=== PATIENT | female | born 1950 | race African-American/Black ===

== ENCOUNTER → 2018-12-25 | Day surgery (SDC) | payer MEDICARE, OTHER ==
[2018-12-18 09:46] VITALS: BP 137/78
[2018-12-18 11:41] LABS: APPEARANCE,URINE CLOUDY; BILIRUBIN,URINE NEGATIVE (NEGATIVE); GLUCOSE, URINE NEGATIVE (NEGATIVE); KETONES,URINE NEGATIVE (NEGATIVE); LEUKOCYTE ESTERASE,URINE SMALL (NEGATIVE); NITRITE,URINE NEGATIVE (NEGATIVE); PROTEIN,URINE NEGATIVE (NEGATIVE); URINE SPECIFIC GRAVITY 1.017; UROBILINOGEN,URINE NEGATIVE mg/dL (<2.0)
[2018-12-18 11:42] LABS: COLOR,URINE YELLOW
[2018-12-18 11:46] LABS: MEAN CORPUSCULAR HEMOGLOBIN 27.4 pg (27.0-33.4); MEAN CORPUSCULAR HGB CONC 32.3 g/dL (32.0-36.0); MEAN CORPUSCULAR VOLUME 85 fl (80-97); PLATELET COUNT 295 10^3/uL (150-450); RED CELL DISTRIBUTION WIDTH 13.7 % (11.5-14.0); WHITE BLOOD COUNT 4.6 10^3/uL (4.0-10.5)
[2018-12-18 11:51] LABS: INTERNATIONAL RATION (INR) 0.96; PROTHROMBIN TIME 13.3 SEC (11.4-15.4)
[2018-12-18 11:52] LABS: PARTIAL THROMBOPLASTIN TIME 34.9 SEC (23.5-35.8)
--- NOTE | 2018-12-18 12:24 | RADIOLOGY REPORT (SQ) ---
EXAM DESCRIPTION: CHEST PA/LATERAL COMPLETED DATE/TIME: 12/18/2018 11:35 am REASON FOR STUDY: PRE-OP COMPARISON: 11/02/2011 EXAM PARAMETERS: NUMBER OF VIEWS: two views TECHNIQUE: Digital Frontal and Lateral radiographic views of the chest acquired. RADIATION DOSE: NA LIMITATIONS: none FINDINGS: LUNGS AND PLEURA: No opacities, masses or pneumothorax. No pleural effusion. MEDIASTINUM AND HILAR STRUCTURES: No masses or contour abnormalities. HEART AND VASCULAR STRUCTURES: Heart normal size. No evidence for failure. BONES: No acute findings. Mild degenerative changes at the left Shoulder. HARDWARE: None in the chest. OTHER: No other significant finding. IMPRESSION: NO SIGNIFICANT RADIOGRAPHIC FINDING IN THE CHEST. TECHNICAL DOCUMENTATION: JOB ID: [id number] [employer]- All Rights Reserved Reading location - IP/workstation name: [email or web address]
--- NOTE | 2018-12-18 15:46 | EKG REPORT ---
SEVERITY:- ABNORMAL ECG - SINUS RHYTHM RIGHT ATRIAL ABNORMALITY BORDERLINE PROLONGED QT INTERVAL : Confirmed by: Grant Peters MD 18-Dec-2018 15:46:14
[~2018-12-25] MED LIST: CEFAZOLIN 1 GM/D5W RTU 1 GM/50 ML RTUPB IV PRN; LACTATED RINGERS 1000 ML IV PRN; LIDOCAINE 0.5% INJ-PF (5 MG/ML) 50 ML SDV SUBCUT PRN
[2018-12-25 09:20] LABS: APPEARANCE,URINE CLOUDY; BILIRUBIN,URINE NEGATIVE (NEGATIVE); COLOR,URINE YELLOW; GLUCOSE, URINE NEGATIVE (NEGATIVE); KETONES,URINE NEGATIVE (NEGATIVE); LEUKOCYTE ESTERASE,URINE MODERATE (NEGATIVE); NITRITE,URINE NEGATIVE (NEGATIVE); PROTEIN,URINE NEGATIVE (NEGATIVE); URINE SPECIFIC GRAVITY 1.015; UROBILINOGEN,URINE NEGATIVE mg/dL (<2.0)
--- NOTE | 2018-12-25 10:48 | DISCHARGE SUMMARY E ---
Discharge Summary NAME: ESDRAS PAINTER : 1950 AGE: 68Y ADMITTED: 12/25/2018 DISCHARGED: 12/25/2018 DISCHARGE DIAGNOSIS: 1. END OF LIFE INTRATHECAL BACLOFEN PUMP. 2. CELLULITIS, LOWER EXTREMITIES. 3. PROBABLE URINARY TRACT INFECTION. AMBULATORY SURGERY COURSE: Patient was admitted through the usual process. Nursing discussed with the patient her status. The patient revealed that she had been having increased swelling and blisters in her lower extremities. She states she did not bring that to any other provider's attention prior to this. On examination, the patient was found to have moderate edema of the calves and ankles as well as some open blisters of the calves. IMPRESSION: PROBABLE CELLULITIS SECONDARY TO STASIS. RECOMMENDATION: Patient will be sent [facility] for evaluation and treatment. Urinalysis will be performed as well and treatment will be initiated as needed. The patient will follow up in the clinic in 1 week. DICTATING PHYSICIAN: ALFREDO WALSH M.D. [id number] PHY#: [id number] ID: [id number] JOB#: [id number] ACCT: [id number] cc:ALFREDO WALSH M.D. >
== END ==
LOC: OROUT 08:24
PROVIDERS: ATTEND Pain Medicine Interventional Pain Medicine
DX: I87.8 Other specified disorders of veins (principal); L03.116 Cellulitis of left lower limb; L03.115 Cellulitis of right lower limb; G89.4 Chronic pain syndrome; Z79.01 Long term (current) use of anticoagulants; Z79.899 Other long term (current) drug therapy; G35 Multiple sclerosis; Z99.3 Dependence on wheelchair
CPT/HCPCS: 36415; 71046; 81001; 85027; 85610; 85730; 93005; 93010

== ENCOUNTER 2019-02-05 06:02 | Day surgery (SDC) | payer MEDICARE, OTHER ==
[2019-01-29 11:08] LABS: APPEARANCE,URINE CLEAR; BILIRUBIN,URINE NEGATIVE (NEGATIVE); COLOR,URINE STRAW; GLUCOSE, URINE NEGATIVE (NEGATIVE); KETONES,URINE NEGATIVE (NEGATIVE); LEUKOCYTE ESTERASE,URINE NEGATIVE (NEGATIVE); NITRITE,URINE NEGATIVE (NEGATIVE); PROTEIN,URINE NEGATIVE (NEGATIVE); URINE SPECIFIC GRAVITY 1.008; UROBILINOGEN,URINE NEGATIVE mg/dL (<2.0)
--- NOTE | 2019-01-29 12:00 | RADIOLOGY REPORT (SQ) ---
EXAM DESCRIPTION: CHEST PA/LATERAL COMPLETED DATE/TIME: 01/29/2019 11:47 am REASON FOR STUDY: PRE-OP COMPARISON: TWO-VIEW CHEST 12/18/2018 CT CHEST 07/20/2016 EXAM PARAMETERS: NUMBER OF VIEWS: two views TECHNIQUE: Digital Frontal and Lateral radiographic views of the chest acquired. RADIATION DOSE: NA LIMITATIONS: none FINDINGS: LUNGS AND PLEURA: Lungs are hyperinflated and hyperlucent from obstructive disease. No fo annie infiltrates. No pleural effusion. No pneumothorax. MEDIASTINUM AND HILAR STRUCTURES: Retrocardiac small hiatal hernia HEART AND VASCULAR STRUCTURES: Heart normal size. No evidence for failure. BONES: No acute findings. HARDWARE: None in the chest. OTHER: No other significant finding. IMPRESSION: COPD. No acute infiltrates TECHNICAL DOCUMENTATION: JOB ID: [id number] [employer]- All Rights Reserved Reading location - IP/workstation name: [email or web address]
--- NOTE | 2019-01-29 12:07 | EKG REPORT ---
SEVERITY:- OTHERWISE NORMAL ECG - SINUS RHYTHM LOW VOLTAGE IN FRONTAL LEADS NO ACUTE CHANGE : Confirmed by: Grant Peters MD 29-Jan-2019 12:07:20
[2019-01-29 12:08] LABS: HEMATOCRIT 32.3 % (36.0-47.0); HEMOGLOBIN 10.6 g/dL (12.0-15.5); MEAN CORPUSCULAR HEMOGLOBIN 27.8 pg (27.0-33.4); MEAN CORPUSCULAR HGB CONC 32.8 g/dL (32.0-36.0); MEAN CORPUSCULAR VOLUME 85 fl (80-97); PLATELET COUNT 292 10^3/uL (150-450); RED BLOOD COUNT 3.81 10^6/uL (3.72-5.28); RED CELL DISTRIBUTION WIDTH 14.1 % (11.5-14.0); WHITE BLOOD COUNT 4.5 10^3/uL (4.0-10.5)
[2019-01-29 12:25] LABS: INTERNATIONAL RATION (INR) 0.94
[2019-01-29 12:26] LABS: PARTIAL THROMBOPLASTIN TIME 33.4 SEC (23.5-35.8)
[~2019-02-05 06:02] MED LIST changes: +CEFAZOLIN 1 GM/D5W RTU 1 GM/50 ML RTUPB IV ONE
[2019-02-05] MEDS ORDERED: SODIUM BICARBONATE 4.2% INJ (2.5 MEQ/5 ML) VIAL ONE (06:26)
[2019-02-05] MEDS ORDERED: LIDOCAINE 1% INJ-PF (10 MG/ML) 30 ML SDV ONE (06:26)
[2019-02-05] MEDS ORDERED: BUPIVACAINE HCL 0.5%-EPI 1:200000 INJ/PF 30 ML VIAL ONE (06:26)
[2019-02-05] MEDS ORDERED: FENTANYL CITRATE INJ/PF 100 MCG/2 ML AMPUL ONE (06:52)
[2019-02-05] MEDS ORDERED: MIDAZOLAM 2 MG/2 ML INJ ONE (06:52)
[2019-02-05] MEDS ORDERED: ONDANSETRON HCL INJ/PF 4 MG/2 ML SDV ONE (06:52)
[2019-02-05] MEDS ORDERED: EPHEDRINE SULFATE INJ 50 MG/1 ML AMPULE ONE (06:52)
[2019-02-05] MEDS ORDERED: PROMETHAZINE HCL INJ 25 MG/1 ML VIAL ONE ×2 (06:52→09:27)
[2019-02-05] MEDS ORDERED: PROPOFOL INJ 200 MG/20 ML VIAL IV ONE (06:53)
[2019-02-05] MEDS ORDERED: ACETAMINOPHEN 1,000 MG/100 ML RTUPB IV ONE (06:53)
[2019-02-05] MEDS ORDERED: MEPERIDINE HCL/PF INJ 25 MG/1 ML DISP.SYRIN IV PRN (08:27)
[2019-02-05] MEDS ORDERED: FENTANYL CITRATE INJ/PF 100 MCG/2 ML AMPUL IV PRN (08:27)
[2019-02-05] MEDS ORDERED: PROMETHAZINE HCL INJ 25 MG/1 ML VIAL IV PRN (08:27)
[2019-02-05] MEDS ORDERED: DIPHENHYDRAMINE HCL 50 MG/ML VIAL IV PRN (08:27)
[2019-02-05] MEDS ORDERED: CEFAZOLIN INJ 1 GM VIAL ONE (09:17)
--- NOTE | 2019-02-05 10:39 | OPERATIVE REPORT E ---
Operative Report NAME: ESDRAS PAINTER : 1950 AGE: 68Y DATE OF SURGERY: 02/05/2019 ROOM: PREOPERATIVE DIAGNOSIS: End-of-life battery intrathecal pump for chronic spasticity. 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 OPERATION: Intrathecal pump replacement. SURGEON: LALY SEVILLA M.D. MARINE GEAR KEEPER: None. ANESTHESIA: MAC. COMPLICATIONS: None. PROCEDURE IN DETAIL: After obtaining informed consent and advising the patient of the risks and benefits, including serious neurological injury, bleeding, infection, allergic reaction, , she was taken to the operating room. She was placed comfortably in a supine position. Comfort was assessed visually and verbally. She was then prepped with chlorhexidine with a suitable drying time prior to draping. Intrathecal pump was readily palpable in the right lower quadrant. Previous incision scar was anesthetized with 1% lidocaine with bicarb followed by bupivacaine 0.25% with epinephrine. Sharp and blunt dissection was performed down to the intrathecal pump which was readily identified. Electrocautery was minimally necessary for hemostasis. The old sutures were then clipped and the intrathecal pump was easily removed. A small *------* incision was made in the scar capsule of the generator pocket to facilitate placement of new generator and new pump. The old pump was then disconnected and 2 mL was able to be drawn from the catheter line. The new pump on the side table at the same time was filled and primed to set for the pump and catheter since 2 mL were withdrawn. It was then connected and placed back within the pocket and then secured with 0 Mersilene to the superior edge of the pocket. A Betadine-containing irrigation solution was then copiously used for irrigation into the wound. It was then closed with interrupted vertical mattress sutures of 3-0 Polysorb. The skin came together nicely. The region was cleansed again followed by placement of anoop. When this was done, a Tegaderm sponge dressing *------* was placed over the top. She was then taken back to the PACU for further postoperative care and monitoring. The pump was then interrogated with appropriate medication and 42 mL instilled. The patient will follow up for staple removal and wound check on , 02/07/2019, in our office. DICTATING PHYSICIAN: LALY SEVILLA M.D. [id number] PHY#: [id number] ID: [id number] JOB#: [id number] ACCT: [id number] cc:LALY SEVILLA M.D. >
[2019-02-05 12:34] VITALS: BP 107/69
== END 2019-02-05 11:30 | disposition home or self-care (01) ==
LOC: OROUT 06:02
PROVIDERS: ATTEND Student in an Organized Health Care Education/Training Program
DX: Z45.1 Encounter for adjustment and management of infusion pump (principal); G89.4 Chronic pain syndrome; G35 Multiple sclerosis; L97.909 Non-pressure chronic ulcer of unspecified part of unspecified lower leg with unspecified severity; Z79.899 Other long term (current) drug therapy
CPT/HCPCS: 93010; 93005; 62361; 36415 ×2; 84132; 85027; 85610; 85730; 81001; 71046; C1772; J2250; J3490 ×3; J0690 ×2; J3010; J2704; J0131; 400; J2405; J2550

== ENCOUNTER → 2019-02-19 | Outpatient (CLI) | payer MEDICARE, OTHER ==
[2019-02-19 12:57] LABS: ABSOLUTE EOSINOPHILS # (AUTO) 0.1 10^3/uL (0.0-0.6); ABSOLUTE LYMPHOCYTES (AUTO) 0.2 10^3/uL (0.5-4.7); ABSOLUTE MONOCYTES (AUTO) 0.6 10^3/uL (0.1-1.4); ABSOLUTE NEUT (AUTO) 3.2 10^3/uL (1.7-8.2); EOSINOPHILS % (AUTO) 1.4 % (0-6); HEMATOCRIT 33.5 % (36.0-47.0); HEMOGLOBIN 10.9 g/dL (12.0-15.5); LYMPHOCYTES % (AUTO) 5.5 % (13-45); MEAN CORPUSCULAR HEMOGLOBIN 27.5 pg (27.0-33.4); MEAN CORPUSCULAR HGB CONC 32.5 g/dL (32.0-36.0); MEAN CORPUSCULAR VOLUME 85 fl (80-97); MONOCYTES % (AUTO) 15.2 % (3-13); RED BLOOD COUNT 3.96 10^6/uL (3.72-5.28); RED CELL DISTRIBUTION WIDTH 14.3 % (11.5-14.0); SEGMENTED NEUTROPHILS % (AUTO) 76.9 % (42-78); TOTAL CELLS COUNTED % (AUTO) 100 %; WHITE BLOOD COUNT 4.1 10^3/uL (4.0-10.5)
[2019-02-19 13:25] LABS: ALANINE AMINOTRANSFERASE 15 U/L (9-52); ALBUMIN 4.4 g/dL (3.5-5.0); ALKALINE PHOSPHATASE 127 U/L (38-126); ANION GAP 9 (5-19); ASPARTATE AMINO TRANSFERASE 22 U/L (14-36); BILIRUBIN,DIRECT 0.3 mg/dL (0.0-0.4); BILIRUBIN,TOTAL 0.3 mg/dL (0.2-1.3); BLOOD UREA NITROGEN 43 mg/dL (7-20); CALCIUM 9.6 mg/dL (8.4-10.2); CARBON DIOXIDE 29 mmol/L (22-30); CHLORIDE 105 mmol/L (98-107); GLUCOSE 90 mg/dL (75-110); POTASSIUM 3.8 mmol/L (3.6-5.0); SODIUM 143.1 mmol/L (137-145); TOTAL PROTEIN 7.4 g/dL (6.3-8.2)
[2019-02-19 13:27] LABS: C-REACTIVE PROTEIN < 5.0 mg/L (<10.0)
[2019-02-19 13:32] LABS: PLATELET COUNT 284 10^3/uL (150-450)
[2019-02-19 13:46] LABS: ERYTHROCYTE SEDIMENTATION RATE 32 mm/hr (0-30)
--- NOTE | 2019-02-19 17:28 | XCELERA REPORT ---
[address] [address] Lower Extremity Arterial Evaluation Name: ESDRAS PAINTER Age: 68 yrs Gender: Female : 1950 Patient Status: Outpatient Patient Location: [facility] Study Date: 02/19/2019 01:17 PM Procedure: A color flow and duplex scan of the lower extremity arteries was performed bilaterally with velocity and waveform anaylsis. Reason For Study: ULCER Ordering Physician: LETY BARRETT Performed By: [place] Measurements and Calculations Right Left PARAMEDICAL AIDE PSV 126.4 105.9 cm/sec Prox PFA PSV -67.7 100.4 cm/sec Prox SFA PSV 85.9 98.2 cm/sec Mid SFA PSV -115.7 -99.3 cm/sec Dist SFA PSV -75.1 -84.0 cm/sec Prox Pop A PSV 52.0 49.2 cm/sec Dist TORRIE PSV 67.7 44.3 cm/sec Dist COLLECTION DEVELOPMENT LIBRARIAN PSV 82.5 45.5 cm/sec Garry Pedis PSV 58.0 -85.5 cm/sec Right Side Arterial Evaluation Normal velocity and triphasic waveforms noted from the Common Femoral artery to the infrageniculate vessels . Ankle Brachial index not obtained. Left Side Arterial Evaluation Normal velocity and triphasic waveforms noted from the Common Femoral artery to the infrageniculate vessels . Ankle Brachial index not obtained. Interpretation Summary No hemodynamically significant lesions in the bilateral lower extremities, on duplex imaging, at rest. : LETY BARRETT > Tommy Dockery
--- NOTE | 2019-02-19 17:30 | XCELERA REPORT ---
[address] [address] Lower Extremity Venous Evaluation Procedure: A bilateral duplex scan of the lower extremity veins was performed. The evaluation included responses to compression and other maneuvers with patient in the supine and standing positions to assess venous insufficiency. Right Sided Venous Evaluation Deep venous system evaluatiion shows patent veins with no obstruction or significant reflux identified. Sapheno Femoral junction: no reflux. Femoral vein reflux: no reflux. Greater Saphenous vein, Proximal thigh: reflux: no reflux. Greater Saphenous vein, Distal thigh: reflux: no reflux. Greater Saphenous vein, Proximal below knee: reflux: no reflux. No significant Perforators identified. Left Sided Venous Evaluation Deep venous system evaluatiion shows patent veins with no obstruction or significant reflux identified. Sapheno Femoral junction: no reflux. Femoral vein reflux: no reflux. Greater Saphenous vein, Proximal thigh: reflux: no reflux. Greater Saphenous vein, Distal thigh: reflux: no reflux. Greater Saphenous vein, Proximal below knee: reflux: no reflux. No significant Perforators identified. Interpretation Summary No duplex evidence of DVT or obstruction in the bilateral lower extremities. No deep or superficial reflux noted. The study was very difficult due to patient's inability to stand. Name: ESDRAS PAINTER Age: 68 yrs Gender: Female : 1950 Patient Status: Outpatient Patient Location: Study Date: 02/19/2019 02:10 PM Reason For Study: ULCER Ordering Physician: LETY BARRETT Performed By: [place] : LETY BARRETT > Tommy Dockery
== END ==
LOC: SP 13:40
PROVIDERS: ATTEND Nurse Practitioner Family
DX: L97.211 Non-pressure chronic ulcer of right calf limited to breakdown of skin (principal); L97.222 Non-pressure chronic ulcer of left calf with fat layer exposed
CPT/HCPCS: 36415; 80053; 85025; 85652; 86140; 93925; 93970

== ENCOUNTER 2020-04-23 13:20 | Inpatient (IN) | payer MEDICARE, OTHER ==
--- NOTE | 2020-04-23 14:06 | ER Document Report ---
ED Medical Screen (RME) - General Chief Complaint: Skin Sore(s) Stated Complaint: OPEN SORES Time Seen by Provider: 04/23/20 13:57 Primary Care Provider: PAULINA HURLEY MD [Primary Care Provider] - Follow up as needed Mode of Arrival: Wheelchair Information source: Patient, Relative Notes: HPI; 70-year-old female past medical history significant for MS presents to the emergency room with her son states she was sent here by home health for decubitus ulcers and ulcers between her foot. Son states she has been getting home health and today they noticed the decubitus ulcers were draining a foul odor. There is no fever. Also concerned about some increasing memory loss over the past month. PCP is aware no diagnostic testing has been ordered. PE: She is an alert and oriented x3. She is a frail-appearing elderly lady she is in mild distress. Her lungs were clear to auscultation without rales, rhonchi, wheezes. Heart: Regular rate and rhythm without murmurs, rubs, or gallops. Unable to evaluate ulcers in triage. I have greeted and performed a rapid initial assessment of this patient. A comprehensive ED assessment and evaluation of the patient, analysis of test results and completion of the medical decision making process will be conducted by additional ED providers. I have specifically instructed the patient or family members with the patient to immediately return to any nursing staff should anything change in the patient's condition or with their chief complaint. TRAVEL OUTSIDE OF THE [place] IN LAST 30 DAYS: No - Related Data Allergies/Adverse Reactions: No Known Allergies Allergy (Verified 12/18/18 09:46) Past Medical History - Past Medical History Cardiac Medical History: Reports: Hx Hypercholesterolemia Denies: Hx Atrial Fibrillation, Hx Congestive Heart Failure, Hx Coronary Artery Disease, Hx Heart Attack, Hx Hypertension, Hx Peripheral Vascular Disease, Hx Heart Murmur Pulmonary Medical History: Denies: Hx Asthma, Hx Bronchitis, Hx COPD, Hx Pneumonia, Hx Tuberculosis Neurological Medical History: Denies: Hx Cerebrovascular Accident, Hx Seizures, Hx Parkinson's Disease Musculoskeltal Medical History: Denies Hx Arthritis, Denies Hx Fibromyalgia, Reports Hx Multiple Sclerosis, Denies Hx Muscular Dystrophy Psychiatric Medical History: Reports: Hx Depression Denies: Hx Bipolar Disorder, Hx Dementia, Hx Post Traumatic Stress Disorder, Hx Schizophrenia Traumatic Medical History: Reports: Hx Fractures - left hip Past Surgical History: Denies: Hx Pacemaker - Immunizations Hx Diphtheria, Pertussis, Tetanus Vaccination: Yes Physical Exam - Vital signs Vitals: Temp Pulse Resp BP Pulse Ox 98.4 F 100 14 89/60 L 99 04/23/20 13:30 04/23/20 13:30 04/23/20 13:30 04/23/20 13:30 04/23/20 13:30 Course - Vital Signs Vital signs: Temp Pulse Resp BP Pulse Ox 98.4 F 100 14 89/60 L 99 04/23/20 13:30 04/23/20 13:30 04/23/20 13:30 04/23/20 13:30 04/23/20 13:30 Doctor's Discharge - Discharge Referrals: PAULINA HURLEY MD [Primary Care Provider] - Follow up as needed
[2020-04-23 15:22] LABS: HEMATOCRIT 35.9 % (36.0-47.0); HEMOGLOBIN 11.5 g/dL (12.0-15.5); MEAN CORPUSCULAR HEMOGLOBIN 27.5 pg (27.0-33.4); MEAN CORPUSCULAR VOLUME 86 fl (80-97); PLATELET COUNT 354 10^3/uL (150-450); RED BLOOD COUNT 4.18 10^6/uL (3.72-5.28); RED CELL DISTRIBUTION WIDTH 15.2 % (11.5-14.0); WHITE BLOOD COUNT 7.1 10^3/uL (4.0-10.5)
[2020-04-23 15:41] LABS: ABSOLUTE LYMPHOCYTES# (MANUAL) 0.3 10^3/uL (0.5-4.7); ABSOLUTE MONOCYTES # (MANUAL) 0.6 10^3/uL (0.1-1.4); BASOPHILS % (MANUAL) 0 % (0-2); EOSINOPHILS % (MANUAL) 1 % (0-6); LYMPHOCYTES % (MANUAL) 4 % (13-45); MONOCYTES % (MANUAL) 9 % (3-13); SEGMENTED NEUTROPHILS % (MAN) 86 % (42-78); TOTAL CELLS COUNTED 100
[2020-04-23 15:43] LABS: ALKALINE PHOSPHATASE 107 U/L (38-126); ANION GAP 7 (5-19); ANISOCYTOSIS SLIGHT; ASPARTATE AMINO TRANSFERASE 41 U/L (14-36); BILIRUBIN,DIRECT 0.2 mg/dL (0.0-0.4); BILIRUBIN,TOTAL 0.4 mg/dL (0.2-1.3); BLOOD UREA NITROGEN 59 mg/dL (7-20); CALCIUM 9.7 mg/dL (8.4-10.2); CARBON DIOXIDE 36 mmol/L (22-30); CHLORIDE 99 mmol/L (98-107); GLUCOSE 115 mg/dL (75-110); OVALOCYTES SLIGHT; PLATELET COMMENT ADEQUATE; POIKILOCYTOSIS SLIGHT; POTASSIUM 4.1 mmol/L (3.6-5.0); TOTAL PROTEIN 7.1 g/dL (6.3-8.2)
[2020-04-23] MEDS ORDERED: RINGERS SOLUTION,LACTATED 1,000 ML IV ONE (16:14)
[2020-04-23 16:17] LABS: AMORPHOUS SEDIMENT,URINE TRACE /HPF; APPEARANCE,URINE SLIGHTLY-CLOUDY; BILIRUBIN,URINE NEGATIVE (NEGATIVE); COLOR,URINE YELLOW; GLUCOSE, URINE NEGATIVE (NEGATIVE); KETONES,URINE NEGATIVE (NEGATIVE); LEUKOCYTE ESTERASE,URINE MODERATE (NEGATIVE); NITRITE,URINE POSITIVE (NEGATIVE); PROTEIN,URINE NEGATIVE (NEGATIVE); URINE SPECIFIC GRAVITY 1.012; UROBILINOGEN,URINE NEGATIVE mg/dL (<2.0)
[2020-04-23] MEDS ORDERED: CEFTRIAXONE 1 GM/D5W RTU 1 GM/50 ML RTUPB IV ONE (17:04)
--- NOTE | 2020-04-23 17:26 | ER Document Report ---
ED General - General Chief Complaint: Skin Sore(s) Stated Complaint: OPEN SORES Time Seen by Provider: 04/23/20 13:57 Mode of Arrival: Wheelchair Notes: Patient presents after home health nurse became concerned about the appearance of patient's decubitus ulcers. Nursing staff come to the home twice a week. Staff noted an odor and drainage to her decubitus wound that was concerning. Patient son states that she has not been eating or drinking at home. Symptoms have been going on for the past week. Patient without any fever. TRAVEL OUTSIDE OF THE [place] IN LAST 30 DAYS: No - HPI Onset: Last week Onset/Duration: Worse Quality of pain: Achy Pain Level: 2 Associated symptoms: denies: Body/muscle aches, Nonproductive cough, Productive cough, Fever, Nausea, Vomiting Exacerbated by: Denies Relieved by: Denies Similar symptoms previously: No Recently seen / treated by doctor: No - Related Data Allergies/Adverse Reactions: No Known Allergies Allergy (Verified 12/18/18 09:46) Home Medications: Fingolimod, Maxzide, Vilazodone, Evista, Metoprolol, Remeron, Lasix Past Medical History - General Information source: Patient, Relative - Social History Smoking Status: Never Smoker Lives with: Family Family History: Reviewed & Not Pertinent Patient has homicidal ideation: No - Medical History Medical History: Other - MS - Past Medical History Cardiac Medical History: Reports: Hx Hypercholesterolemia Neurological Medical History: Denies: Hx Cerebrovascular Accident, Hx Seizures, Hx Parkinson's Disease Musculoskeletal Medical History: Denies Hx Arthritis, Denies Hx Fibromyalgia, Reports Hx Multiple Sclerosis, Denies Hx Muscular Dystrophy Psychiatric Medical History: Reports: Hx Depression Traumatic Medical History: Reports: Hx Fractures - left hip Past Surgical History: Reports: Hx Orthopedic Surgery. Denies: Hx Pacemaker - Immunizations Hx Diphtheria, Pertussis, Tetanus Vaccination: Yes Hx Pneumococcal Vaccination: 11/20/17 Review of Systems - Review of Systems Constitutional: No symptoms reported. denies: Fever, Recent illness EENT: No symptoms reported Cardiovascular: No symptoms reported. denies: Chest pain Respiratory: No symptoms reported. denies: Cough, Short of breath Gastrointestinal: Poor appetite, Poor fluid intake. denies: Nausea, Vomiting Genitourinary: No symptoms reported Female Genitourinary: No symptoms reported Musculoskeletal: No symptoms reported Skin: Other - Decubitus ulcer with odor and drainage Hematologic/Lymphatic: No symptoms reported Neurological/Psychological: No symptoms reported Physical Exam - Vital signs Vitals: Temp Pulse Resp BP Pulse Ox 98.4 F 100 14 89/60 L 99 04/23/20 13:30 04/23/20 13:30 04/23/20 13:30 04/23/20 13:30 04/23/20 13:30 - General General appearance: Alert In distress: None - HEENT Head: Normocephalic Eyes: Normal Conjunctiva: Normal Nasal: Normal Mouth/Lips: Normal Mucous membranes: Dry - Respiratory Respiratory status: No respiratory distress Chest status: Nontender Breath sounds: Normal. No: Rales, Rhonchi, Stridor, Wheezing Chest palpation: Normal - Cardiovascular Rhythm: Regular Heart sounds: S1 appreciated, S2 appreciated - Abdominal Inspection: Normal Distension: No distension Bowel sounds: Normal Tenderness: Nontender - Back Back: Normal - Extremities General upper extremity: Normal inspection, Normal strength General lower extremity: Other - Contractures to lower extremities - Neurological [place] Coma Scale Eye Opening: Spontaneous [place] Coma Scale Verbal: Oriented [place] Coma Scale Motor: Obeys Commands [place] Coma Scale Total: 15 - Psychological Associated symptoms: Normal affect, Normal mood - Skin Skin Temperature: Warm Skin Moisture: Dry Skin Color: Other - Decubitus wound to left hip and sacral area, wound over left hip has large area of eschar Course - Re-evaluation Re-evalutation: 04/23/20 17:10 Called and spoke to patient's son Martinez regarding her presentation. He was concerned that patient is not eating or drinking at home and that the wound care nurse noticed some odor to her decubitus wounds. 04/23/20 17:[address] Ann regarding patient presentation, reviewed her diagnostic evaluation. Recommends having patient admitted to the medical floor at this time and advises having surgeon consulted to evaluate her wounds. 04/23/20 20:16 - Vital Signs Vital signs: Temp Pulse Resp BP Pulse Ox 98.1 F 81 16 111/70 96 04/23/20 17:17 04/23/20 17:17 04/23/20 17:17 04/23/20 17:17 04/23/20 17:17 - Laboratory Result Diagrams: 04/23/20 15:05 04/23/20 15:05 Laboratory results interpreted by me: 04/23/20 04/23/20 04/23/20 15:05 15:05 15:52 Hgb 11.5 L Hct 35.9 L RDW 15.2 H Seg Neuts % (Manual) 86 H Lymphocytes % (Manual) 4 L Abs Lymphs (Manual) 0.3 L Carbon Dioxide 36 H BUN 59 H Creatinine 2.05 H Est GFR ( Amer) 29 L Est GFR (MDRD) Non-Af 24 L Glucose 115 H AST 41 H Urine Nitrite POSITIVE H Ur Leukocyte Esterase MODERATE H Urine Ascorbic Acid 20 H 04/23/20 17:25 Labs- All tests 24 hr 04/23/20 04/23/20 04/23/20 15:05 15:05 15:05 WBC 7.1 RBC 4.18 Hgb 11.5 L Hct 35.9 L MCV 86 MCH 27.5 MCHC 32.0 RDW 15.2 H Plt Count 354 Lymph % (Auto) Not Reportable Andrew % (Auto) Not Reportable Eos % (Auto) Not Reportable Baso % (Auto) Not Reportable Absolute Neuts (auto) Not Reportable Absolute Lymphs (auto) Not Reportable Absolute Monos (auto) Not Reportable Absolute Eos (auto) Not Reportable Absolute Basos (auto) Not Reportable Total Counted 100 Seg Neutrophils % Not Reportable Seg Neuts % (Manual) 86 H Lymphocytes % (Manual) 4 L Monocytes % (Manual) 9 Eosinophils % (Manual) 1 Basophils % (Manual) 0 Abs Neuts (Manual) 6.1 Abs Lymphs (Manual) 0.3 L Abs Monocytes (Manual) 0.6 Absolute Eos (Manual) 0.1 Abs Basophils (Manual) 0.0 Platelet Comment ADEQUATE Poikilocytosis SLIGHT Anisocytosis SLIGHT Ovalocytes SLIGHT Sodium 141.9 Potassium 4.1 Chloride 99 Carbon Dioxide 36 H Anion Gap 7 BUN 59 H Creatinine 2.05 H Est GFR ( Amer) 29 L Est GFR (MDRD) Non-Af 24 L Glucose 115 H Lactic Acid 1.5 Calcium 9.7 Total Bilirubin 0.4 Direct Bilirubin 0.2 Neonat Total Bilirubin Not Reportable Neonat Direct Bilirubin Not Reportable Neonat Indirect Bili Not Reportable AST 41 H ALT 21 Alkaline Phosphatase 107 Total Protein 7.1 Albumin 4.0 Urine Color Urine Appearance Urine pH Ur Specific [place] Urine Protein Urine Glucose (UA) Urine Ketones Urine Blood Urine Nitrite Urine Bilirubin Urine Urobilinogen Ur Leukocyte Esterase Urine WBC (Auto) Urine RBC (Auto) Urine Bacteria (Auto) Squamous Epi Cells Auto Amorphous Sediment Auto Urine Mucus (Auto) Urine Ascorbic Acid 04/23/20 15:52 WBC RBC Hgb Hct MCV MCH MCHC RDW Plt Count Lymph % (Auto) Andrew % (Auto) Eos % (Auto) Baso % (Auto) Absolute Neuts (auto) Absolute Lymphs (auto) Absolute Monos (auto) Absolute Eos (auto) Absolute Basos (auto) Total Counted Seg Neutrophils % Seg Neuts % (Manual) Lymphocytes % (Manual) Monocytes % (Manual) Eosinophils % (Manual) Basophils % (Manual) Abs Neuts (Manual) Abs Lymphs (Manual) Abs Monocytes (Manual) Absolute Eos (Manual) Abs Basophils (Manual) Platelet Comment Poikilocytosis Anisocytosis Ovalocytes Sodium Potassium Chloride Carbon Dioxide Anion Gap BUN Creatinine Est GFR ( Amer) Est GFR (MDRD) Non-Af Glucose Lactic Acid Calcium Total Bilirubin Direct Bilirubin Neonat Total Bilirubin Neonat Direct Bilirubin Neonat Indirect Bili AST ALT Alkaline Phosphatase Total Protein Albumin Urine Color YELLOW Urine Appearance SLIGHTLY-CLOUDY Urine pH 6.0 Ur Specific [place] 1.012 Urine Protein NEGATIVE Urine Glucose (UA) NEGATIVE Urine Ketones NEGATIVE Urine Blood NEGATIVE Urine Nitrite POSITIVE H Urine Bilirubin NEGATIVE Urine Urobilinogen NEGATIVE Ur Leukocyte Esterase MODERATE H Urine WBC (Auto) 6 Urine RBC (Auto) 0 Urine Bacteria (Auto) 1+ Squamous Epi Cells Auto 1 Amorphous Sediment Auto TRACE Urine Mucus (Auto) RARE Urine Ascorbic Acid 20 H Discharge - Discharge Clinical Impression: Acute kidney injury UTI (urinary tract infection) Qualifiers: Urinary tract infection type: site unspecified Hematuria presence: with hematuria Qualified Code(s): N39.0 - Urinary tract infection, site not specified Decubitus skin ulcer Qualifiers: Pressure injury location: hip Pressure injury stage: unspecified pressure injury stage Laterality: left Qualified Code(s): L89.229 - Pressure ulcer of left hip, unspecified stage Condition: Fair Disposition: ADMITTED INPATIENT Admitting Provider: Maria Esther Unit Admitted: Medical Floor
[2020-04-23] MEDS: NORMAL SALINE 1000 ML 1,000 ML IV PRN (22:27)
[2020-04-23] MEDS: HEPARIN SOD (PORCINE) 5,000 UNIT/ML 1 ML VIAL SUBCUT SCH (22:33)
[2020-04-23] MEDS ORDERED: DEXTROSE 40% GEL 15 GM TUBE PO PRN ×2 (23:02)
[2020-04-23] MEDS ORDERED: DEXTROSE 50%-WATER 25 GM/50 ML DISP.SYRIN IV PRN ×2 (23:02)
[2020-04-23] MEDS ORDERED: GLUCAGON,HUMAN RECOMB 1 MG INJ SUBCUT PRN (23:02)
--- NOTE | 2020-04-23 23:48 | PDOC H&P ---
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 She was referred to outpatient wound care clinic but her visiting nurse, not the regular staff, reviewed her wound today and due to observed discharge and perceived odor, she was referred to the ED for further evaluation and management. Patient son reported continue poor food and water intake. No reported nausea, vomiting, abdominal pain, constipation, or diarrhea. No fever, chills, difficulty with breathing, or chest pain. No headache or dizziness. Her initial ED evaluation revealed normal WBC with left shift segmented neutrophils, pre-renal azotemia, hyperglycemia, and abnormal urinalysis with positive nitrite and moderate leukocyte esterase. She was advised hospitalization for further evaluation and management. Her morbidities are as listed below. Past Medical History Cardiac Medical History: Reports: Hyperlipidema Denies: Atrial Fibrillation, Congestive Heart Failure, Coronary Artery Disease, Myocardial Infarction, Hypertension, Peripheral Vascular Disease, Heart Murmur Pulmonary Medical History: Denies: Asthma, Bronchitis, Chronic Obstructive Pulmonary Disease (COPD), Pneumonia, Tuberculosis Neurological Medical History: Denies: Seizures Musculoskeltal Medical History: Denies: Arthritis, Fibromyalgia Psychiatric Medical History: Reports: Depression Denies: Bipolar Disorder, Dementia, Post Traumatic Stress Disorder Hematology: Denies: Anemia Past Surgical History Past Surgical History: Reports: Orthopedic Surgery Denies: Amputation, Pacemaker Social History Lives with: Family Smoking Status: Never Smoker - Advance Directive Resuscitation Status: Full Code Family History Family History: Reviewed & Not Pertinent Parental Family History Reviewed: Yes Children Family History Reviewed: Yes Sibling(s) Family History Reviewed.: Yes Medication/Allergy Home Medications: Fingolimod HCl [Gilenya] 0.5 mg PO DAILY 04/23/20 Furosemide [Lasix 20 mg Tablet] 20 mg PO DAILY 04/23/20 Metoprolol Succinate [Toprol Xl 25 mg Tab.sr] 25 mg PO DAILY 04/23/20 Mirtazapine [Remeron 15 mg Tablet] 15 mg PO DAILY 04/23/20 RX: Raloxifene HCl [Evista 60 mg Tablet] 60 mg PO DAILY 04/23/20 Triamterene/Hydrochlorothiazid [Triamterene-Hctz 37.5-25 mg Tb] 1 tab PO DAILY 04/23/20 Vilazodone HCl [Viibryd] 40 mg PO DAILY 04/23/20 Allergies/Adverse Reactions: No Known Allergies Allergy (Verified 12/18/18 09:46) Review of Systems Constitutional: ABSENT: chills, fever(s), headache(s), weight gain, weight loss Eyes: PRESENT: visual disturbances Ears: ABSENT: hearing changes Nose, Mouth, and Throat: ABSENT: headache(s), mouth pain, sore throat, vertigo Cardiovascular: ABSENT: chest pain, dyspnea on exertion, edema, orthropnea, palpitations Respiratory: ABSENT: cough, hemoptysis Gastrointestinal: ABSENT: abdominal pain, constipation, diarrhea, hematemesis, hematochezia, nausea, vomiting Genitourinary: ABSENT: dysuria, hematuria Musculoskeletal: PRESENT: deformity - due to contracture deformity from advcance multiple sclerosis. ABSENT: joint swelling Integumentary: ABSENT: rash, wounds Neurological: ABSENT: abnormal gait, abnormal speech, confusion, dizziness, focal weakness, syncope Psychiatric: ABSENT: anxiety, depression, homidical ideation, suicidal ideation Endocrine: ABSENT: cold intolerance, heat intolerance, polydipsia, polyuria Hematologic/Lymphatic: ABSENT: easy bleeding, easy bruising, lymphadenopathy Allergic/Immunologic: ABSENT: seasonal rhinorrhea Physical Exam Vital Signs: Temp Pulse Resp BP Pulse Ox 98.1 F 81 16 111/70 96 04/23/20 17:17 04/23/20 17:17 04/23/20 17:17 04/23/20 17:17 04/23/20 17:17 Intake & Output 04/22/20 04/23/20 04/24/20 06:59 06:59 06:59 Intake Total 1050 Balance 1050 Weight 51.7 kg General appearance: PRESENT: no acute distress, thin Head exam: PRESENT: atraumatic, normocephalic Eye exam: PRESENT: conjunctiva pink, EOMI, PERRLA. ABSENT: scleral icterus Ear exam: PRESENT: normal external ear exam Mouth exam: PRESENT: moist, tongue midline Neck exam: PRESENT: full ROM. ABSENT: carotid bruit, JVD, lymphadenopathy, thyromegaly Respiratory exam: PRESENT: clear to auscultation lay Cardiovascular exam: PRESENT: RRR, +S1, +S2. ABSENT: diastolic murmur, rubs, systolic murmur Vascular exam: PRESENT: normal capillary refill. ABSENT: pallor GI/Abdominal exam: PRESENT: normal bowel sounds, soft. ABSENT: distended, guarding, mass, organolmegaly, rebound, tenderness Rectal exam: PRESENT: deferred Extremities exam: PRESENT: pedal edema Musculoskeletal exam: PRESENT: deformity. ABSENT: ambulatory Neurological exam: PRESENT: alert, awake, oriented to person, oriented to place, oriented to time, oriented to situation, CN II-XII grossly intact. ABSENT: motor sensory deficit Psychiatric exam: PRESENT: appropriate affect, normal mood. ABSENT: homicidal ideation, suicidal ideation Skin exam: PRESENT: dry, warm, other - malodor left hip eschar covered unstageable and sacral region stage 3 prsessure ulcer with minimal drainage.. ABSENT: cyanosis, intact, rash Results Laboratory Results: 04/23/20 15:05 04/23/20 15:05 04/23/20 04/23/20 04/23/20 15:05 15:05 15:05 WBC 7.1 RBC 4.18 Hgb 11.5 L Hct 35.9 L MCV 86 MCH 27.5 MCHC 32.0 RDW 15.2 H Plt Count 354 Seg Neutrophils % Not Reportable Sodium 141.9 Potassium 4.1 Chloride 99 Carbon Dioxide 36 H Anion Gap 7 BUN 59 H Creatinine 2.05 H Est GFR ( Amer) 29 L Glucose 115 H Lactic Acid 1.5 Calcium 9.7 Total Bilirubin 0.4 AST 41 H Alkaline Phosphatase 107 Total Protein 7.1 Albumin 4.0 Urine Color Urine Appearance Urine pH Ur Specific [place] Urine Protein Urine Glucose (UA) Urine Ketones Urine Blood Urine Nitrite Ur Leukocyte Esterase Urine WBC (Auto) Urine RBC (Auto) 04/23/20 15:52 WBC RBC Hgb Hct MCV MCH MCHC RDW Plt Count Seg Neutrophils % Sodium Potassium Chloride Carbon Dioxide Anion Gap BUN Creatinine Est GFR ( Amer) Glucose Lactic Acid Calcium Total Bilirubin AST Alkaline Phosphatase Total Protein Albumin Urine Color YELLOW Urine Appearance SLIGHTLY-CLOUDY Urine pH 6.0 Ur Specific [place] 1.012 Urine Protein NEGATIVE Urine Glucose (UA) NEGATIVE Urine Ketones NEGATIVE Urine Blood NEGATIVE Urine Nitrite POSITIVE H Ur Leukocyte Esterase MODERATE H Urine WBC (Auto) 6 Urine RBC (Auto) 0 Assessment & Plan - Diagnosis (1) Decubitus skin ulcer Qualifiers: Pressure injury location: hip Pressure injury stage: unspecified pressure injury stage Laterality: left Qualified Code(s): L89.229 - Pressure ulcer of left hip, unspecified stage Is this a current diagnosis for this admission?: Yes Plan: See admitting attending physician orders for details about care plan. (2) Acute kidney injury Is this a current diagnosis for this admission?: Yes Plan: See admitting attending physician orders for details about care plan. (3) UTI (urinary tract infection) Qualifiers: Urinary tract infection type: site unspecified Hematuria presence: with hematuria Qualified Code(s): N39.0 - Urinary tract infection, site not s pecified; R31.9 - Hematuria, unspecified Is this a current diagnosis for this admission?: Yes Plan: See admitting attending physician orders for details about care plan. (4) Multiple sclerosis, primary chronic progressive Is this a current diagnosis for this admission?: Yes Plan: See admitting attending physician orders for details about care plan. (5) Hyperlipidemia Qualifiers: Hyperlipidemia type: unspecified Qualified Code(s): E78.5 - Hyperlipidemia, unspecified Is this a current diagnosis for this admission?: Yes Plan: See admitting attending physician orders for details about care plan. (6) Depression Qualifiers: Depression Type: major depressive disorder Is this a current diagnosis for this admission?: Yes Plan: See admitting attending physician orders for details about care plan. - Time Time Spent: 50 to 70 Minutes Medications reviewed and adjusted accordingly: Yes Anticipated discharge: Home with Homehealth, SNF Within: Other - Inpatient Certification Based on my medical assessment, after consideration of the patient's comorbidities, presenting symptoms, or acuity I expect that the services needed warrant INPATIENT care.: Yes I certify that my determination is in accordance with my understanding of Medicare's requirements for reasonable and necessary INPATIENT services [42 CFR 412.3e].: Yes Medical Necessity: Significant Comorbidiites Make Outpatient Treatment Too Risky, Need Close Monitoring Due to Risk of Patient Decompensation, Need For IV Fluids, Need for IV Antibiotics, Need for Surgery, Risk of Complication if Not Cared For in Hospital, Risk of Diagnosis Which Will Require Inpatient Eval/Care/Monitoring Post Hospital Care: D/C In House Counsel Documentation - Plan Summary Plan Summary: See admitting attending physician orders for details about care plan.
[2020-04-24 05:07] LABS: HEMATOCRIT 29.4 % (36.0-47.0); HEMOGLOBIN 9.5 g/dL (12.0-15.5); MEAN CORPUSCULAR HEMOGLOBIN 27.8 pg (27.0-33.4); MEAN CORPUSCULAR HGB CONC 32.5 g/dL (32.0-36.0); MEAN CORPUSCULAR VOLUME 86 fl (80-97); PLATELET COUNT 288 10^3/uL (150-450); RED BLOOD COUNT 3.44 10^6/uL (3.72-5.28); RED CELL DISTRIBUTION WIDTH 15.2 % (11.5-14.0); WHITE BLOOD COUNT 6.4 10^3/uL (4.0-10.5)
[2020-04-24 05:22] LABS: ALKALINE PHOSPHATASE 84 U/L (38-126); ASPARTATE AMINO TRANSFERASE 28 U/L (14-36); BILIRUBIN,TOTAL 0.3 mg/dL (0.2-1.3); BLOOD UREA NITROGEN 48 mg/dL (7-20); CALCIUM 8.7 mg/dL (8.4-10.2); CHLORIDE 102 mmol/L (98-107); GLUCOSE 101 mg/dL (75-110); POTASSIUM 3.8 mmol/L (3.6-5.0); TOTAL PROTEIN 5.5 g/dL (6.3-8.2)
[2020-04-24 05:28] LABS: ABSOLUTE LYMPHOCYTES# (MANUAL) 0.3 10^3/uL (0.5-4.7); ABSOLUTE MONOCYTES # (MANUAL) 1.2 10^3/uL (0.1-1.4); BASOPHILS % (MANUAL) 0 % (0-2); CARBON DIOXIDE 34 mmol/L (22-30); EOSINOPHILS % (MANUAL) 0 % (0-6); LYMPHOCYTES % (MANUAL) 5 % (13-45); MONOCYTES % (MANUAL) 18 % (3-13); SEGMENTED NEUTROPHILS % (MAN) 77 % (42-78); TOTAL CELLS COUNTED 100
[2020-04-24 05:29] LABS: ANISOCYTOSIS SLIGHT; PLATELET COMMENT ADEQUATE; TOXIC VACUOLATION PRESENT
[2020-04-24 05:33] LABS: ANION GAP 4 (5-19)
[2020-04-24] MEDS: PANTOPRAZOLE SODIUM 40 MG TABLET.DR PO SCH (05:34)
[2020-04-24] MEDS: HEPARIN SOD (PORCINE) 5,000 UNIT/ML 1 ML VIAL SUBCUT SCH ×3 (05:40→22:23)
[2020-04-24] MEDS: NORMAL SALINE 1000 ML 1,000 ML IV PRN ×2 (08:41→17:59)
[2020-04-24] MEDS ORDERED: LIDOCAINE 1% INJ-PF (10 MG/ML) 30 ML SDV INJ PRN (09:05)
[2020-04-24] MEDS ORDERED: (PENDING PHARMACY ID) (Fingolimod Hcl [Gilenya] 0.5 MG) PO SCH (10:00)
[2020-04-24] MEDS ORDERED: MORPHINE SULFATE 10 MG/ML INJ IV ONE (10:00)
[2020-04-24] MEDS ORDERED: (PENDING PHARMACY ID) (Vilazodone Hcl [Viibryd] 40 MG) PO SCH (10:00)
--- NOTE | 2020-04-24 11:19 | Operative Report ---
Operative Report DATE OF SURGERY: 04/24/20 PREOPERATIVE DIAGNOSIS: Decubitus ulcers left lateral gluteal area and proximal left lateral thigh POSTOPERATIVE DIAGNOSIS: Same OPERATION: Sharp debridement of decubitus ulcers on the left hip. 1) 8 x 8 cm down to the superficial muscle. 2) 3 x 2 cm on the proximal lateral thigh SURGEON: VANESSA MARIANO ANESTHESIA: Local TISSUE REMOVED OR ALTERED: Necrotic tissue including skin subcu and part of muscle. COMPLICATIONS: None ESTIMATED BLOOD LOSS: 15 cc QUANTITATIVE BLOOD LOSS: 15 INTRAOPERATIVE FINDINGS: Necrotic tissue about 8 x 8 cm down to the subcu and muscle. This is on the left lateral hip area. Necrotic tissue including full-thickness and part of subcu about 3 x 2 cm on the proximal lateral thigh PROCEDURE: After informed consent was obtained patient was placed in the right lateral decubitus position. By 1 of the nurses, the left hip and proximal lateral thigh were then prepped and draped in the usual sterile fashion. Patient also given 2 mg of IV morphine. Local anesthesia with 1% Xylocaine was injected along the periphery of both decubitus ulcers using the 25 cc of 1% lidocaine. With the use of a 11 blade sharp dissection along the periphery of the necrotic tissue on the left hip area was done. It was then further debrided down to the subcu and part of the muscle on the mid part of this 8 x 8cm area. There was some bleeding noted and these were controlled with [id number] suture using 3-0 Vicryl. The 2 x 3 cm necrotic tissue on the proximal lateral thigh was then sharply excised. Bleeding was controlled with pressure. The 2 ulcers were then dressed with Xeroform gauze and 4 x 4 and ABD. Patient will be started on wet-to-dry saline dressings in the next 12- 24hours patient tolerated procedure well.
[2020-04-24] MEDS: MIRTAZAPINE 15 MG TABLET PO SCH (14:02)
[2020-04-24] MEDS: RALOXIFENE HCL 60 MG TABLET PO SCH (14:03)
[2020-04-24] MEDS: METOPROLOL SUCCINATE 25 MG TAB.SR.24H PO SCH (14:03)
--- NOTE | 2020-04-24 16:41 | PDOC PROGRESS REPORT ---
Subjective Progress Note for:: 04/24/20 Subjective:: Patient is s/p left hip and lateral aspect of left thigh pressure ulcer sharp debridement. Her oral intake remain poor. No nausea, vomiting, or abdominal pain. No fever or chills. No chest pain or difficulty with breathing. Reason For Visit: JANE,UTI,SACAL AND LEFT HIP DECUBITUS ULCER WITH Physical Exam Vital Signs: Temp Pulse Resp BP Pulse Ox 98.4 F 85 19 97/45 L 99 04/24/20 10:32 04/24/20 10:32 04/24/20 10:32 04/24/20 10:32 04/24/20 10:32 Intake & Output 04/23/20 04/24/20 04/25/20 06:59 06:59 06:59 Intake Total 1150 1000 Balance 1150 1000 Weight 50.1 kg General appearance: PRESENT: no acute distress Head exam: PRESENT: atraumatic, normocephalic Eye exam: PRESENT: conjunctiva pink. ABSENT: scleral icterus Mouth exam: PRESENT: moist Respiratory exam: PRESENT: clear to auscultation lay, decreased breath sounds - at lung bases Cardiovascular exam: PRESENT: RRR, +S1, +S2. ABSENT: diastolic murmur, rubs, systolic murmur Vascular exam: ABSENT: pallor GI/Abdominal exam: PRESENT: normal bowel sounds, soft. ABSENT: distended, guarding, mass, organolmegaly, rebound, tenderness Extremities exam: ABSENT: pedal edema Musculoskeletal exam: PRESENT: deformity - contracture deformity from advance progressive multiple sclerosis Neurological exam: PRESENT: alert, awake, oriented to person, oriented to place, oriented to time, oriented to situation, CN II-XII grossly intact. ABSENT: motor sensory deficit Psychiatric exam: PRESENT: appropriate affect, normal mood. ABSENT: homicidal ideation, suicidal ideation Skin exam: PRESENT: dry, rash - extensive athlete foot fungal infection to left foot., warm, other - dressing over pressute ulcers debridement is satisfactory. Results Laboratory Results: 04/24/20 04:30 04/24/20 04:30 04/23/20 04/24/20 04/24/20 15:52 04:30 04:30 WBC 6.4 RBC 3.44 L Hgb 9.5 L Hct 29.4 L MCV 86 MCH 27.8 MCHC 32.5 RDW 15.2 H Plt Count 288 Seg Neutrophils % Not Reportable Sodium 139.6 Potassium 3.8 Chloride 102 Carbon Dioxide 34 H Anion Gap 4 L BUN 48 H Creatinine 1.74 H Est GFR ( Amer) 35 L Glucose 101 Calcium 8.7 Total Bilirubin 0.3 AST 28 Alkaline Phosphatase 84 Total Protein 5.5 L Albumin 3.0 L Urine Color YELLOW Urine Appearance SLIGHTLY-CLOUDY Urine pH 6.0 Ur Specific [place] 1.012 Urine Protein NEGATIVE Urine Glucose (UA) NEGATIVE Urine Ketones NEGATIVE Urine Blood NEGATIVE Urine Nitrite POSITIVE H Ur Leukocyte Esterase MODERATE H Urine WBC (Auto) 6 Urine RBC (Auto) 0 Assessment & Plan - Diagnosis (1) Decubitus skin ulcer Qualifiers: Pressure injury location: hip Pressure injury stage: unspecified pressure injury stage Laterality: left Qualified Code(s): L89.229 - Pressure ulcer of left hip, unspecified stage Is this a current diagnosis for this admission?: Yes (2) Acute kidney injury Is this a current diagnosis for this admission?: Yes (3) UTI (urinary tract infection) Qualifiers: Urinary tract infection type: site unspecified Hematuria presence: with hematuria Qualified Code(s): N39.0 - Urinary tract infection, site not specified; R31.9 - Hematuria, unspecified Is this a current diagnosis for this admission?: Yes (4) Multiple sclerosis, primary chronic progressive Is this a current diagnosis for this admission?: Yes (5) Hyperlipidemia Qualifiers: Hyperlipidemia type: unspecified Qualified Code(s): E78.5 - Hyperlipidemia, unspecified Is this a current diagnosis for this admission?: Yes (6) Depression Qualifiers: Depression Type: major depressive disorder Is this a current diagnosis for this admission?: Yes (7) Athlete's foot on left Is this a current diagnosis for this admission?: Yes Plan: Clean foot and web space with diluted betadine solution wash. Apply Nystatin powder tid. - Time Time Spent with patient: 25-34 minutes Level of Care: MEDICAL Medications reviewed and adjusted accordingly: Yes Anticipated discharge: Home with Homehealth - Inpatient Certification Medical Necessity: Significant Comorbidiites Make Outpatient Treatment Too Risky, Need Close Monitoring Due to Risk of Patient Decompensation, Need For IV Fluids, Need for IV Antibiotics, Need for Surgery, Risk of Complication if Not Cared For in Hospital, Risk of Diagnosis Which Will Require Inpatient Eval/Care/Monitoring Post Hospital Care: D/C [employer] Documentation - Plan Summary Plan Summary: Follow up on culture findings. Start on nutritional supplementation with Beneprotein and Magic cups. Maintain on current antibiotic coverage and wound dressing as per surgical team recommendation. Start on Nystatin powder to athlete foot lesions.
[2020-04-24] MEDS: CEFTRIAXONE 1 GM/D5W RTU 1 GM/50 ML RTUPB IV SCH (17:57)
[2020-04-24] MEDS: MICONAZOLE NITRATE 2% AEROSOL POWDER 130 GM TP SCH (22:23)
[2020-04-25] MEDS: HEPARIN SOD (PORCINE) 5,000 UNIT/ML 1 ML VIAL SUBCUT SCH ×3 (05:38→22:01)
[2020-04-25] MEDS: PANTOPRAZOLE SODIUM 40 MG TABLET.DR PO SCH (05:38)
[2020-04-25] MEDS: NORMAL SALINE 1000 ML 1,000 ML IV PRN ×2 (05:38→17:00)
[2020-04-25] MEDS: METOPROLOL SUCCINATE 25 MG TAB.SR.24H PO SCH (10:00)
[2020-04-25] MEDS: MICONAZOLE NITRATE 2% AEROSOL POWDER 130 GM TP SCH ×2 (11:00→22:01)
[2020-04-25] MEDS: MIRTAZAPINE 15 MG TABLET PO SCH (11:01)
[2020-04-25] MEDS: RALOXIFENE HCL 60 MG TABLET PO SCH (11:01)
--- NOTE | 2020-04-25 12:08 | PDOC PROGRESS REPORT ---
Subjective Progress Note for:: 04/25/20 Subjective:: Patient is eating better so far today. No nausea, vomiting, or abdominal pain. No fever or chills. No chest pain or difficulty with breathing. Reason For Visit: JANE,UTI,SACAL AND LEFT HIP DECUBITUS ULCER WITH Physical Exam Vital Signs: Temp Pulse Resp BP Pulse Ox 97.7 F 95 14 98/46 L 95 04/25/20 07:26 04/25/20 07:26 04/25/20 07:26 04/25/20 07:26 04/25/20 07:26 Intake & Output 04/24/20 04/25/20 04/26/20 06:59 06:59 06:59 Intake Total 1150 3220 Balance 1150 3220 Weight 50.1 kg 49.3 kg Physical Exam: General appearance: PRESENT: no acute distress Head exam: PRESENT: atraumatic, normocephalic Eye exam: PRESENT: conjunctiva pink. ABSENT: pallor, scleral icterus Mouth exam: PRESENT: moist Respiratory exam: PRESENT: clear to auscultation lay Cardiovascular exam: PRESENT: RRR, +S1, +S2. ABSENT: diastolic murmur, rubs, systolic murmur GI/Abdominal exam: PRESENT: normal bowel sounds, soft. ABSENT: distended, guarding, mass, organomegaly, rebound, tenderness Extremities exam: ABSENT: pedal edema Musculoskeletal exam: PRESENT: deformity - contracture deformity from advance progressive multiple sclerosis Neurological exam: PRESENT: alert, awake, oriented to person, oriented to place, oriented to time, oriented to situation, CN II-XII grossly intact. ABSENT: motor sensory deficit Psychiatric exam: PRESENT: appropriate affect, normal mood. ABSENT: homicidal ideation, suicidal ideation Skin exam: PRESENT: dry, rash - extensive athlete foot fungal infection to left foot, warm, other - dressing over pressure ulcers debridement is satisfactory. Results Laboratory Results: 04/24/20 04:30 04/24/20 04:30 Assessment & Plan - Diagnosis (1) Decubitus skin ulcer Qualifiers: Pressure injury location: hip Pressure injury stage: unspecified pressure injury stage Laterality: left Qualified Code(s): L89.229 - Pressure ulcer of left hip, unspecified stage Is this a current diagnosis for this admission?: Yes (2) Acute kidney injury Is this a current diagnosis for this admission?: Yes (3) UTI (urinary tract infection) Qualifiers: Urinary tract infection type: site unspecified Hematuria presence: with hematuria Qualified Code(s): N39.0 - Urinary tract infection, site not specified; R31.9 - Hematuria, unspecified Is this a current diagnosis for this admission?: Yes (4) Multiple sclerosis, primary chronic progressive Is this a current diagnosis for this admission?: Yes (5) Hyperlipidemia Qualifiers: Hyperlipidemia type: unspecified Qualified Code(s): E78.5 - Hyperlipidemia, unspecified Is this a current diagnosis for this admission?: Yes (6) Depression Qualifiers: Depression Type: major depressive disorder Is this a current diagnosis for this admission?: Yes (7) Athlete's foot on left Is this a current diagnosis for this admission?: Yes - Time Time Spent with patient: 25-34 minutes Level of Care: MEDICAL Medications reviewed and adjusted accordingly: Yes Anticipated discharge: Home with Homehealth, SNF Within: Other - Inpatient Certification Based on my medical assessment, after consideration of the patient's comorbidities, presenting symptoms, or acuity I expect that the services needed warrant INPATIENT care.: Yes I certify that my determination is in accordance with my understanding of Medicare's requirements for reasonable and necessary INPATIENT services [42 CFR 412.3e].: Yes Medical Necessity: Significant Comorbidiites Make Outpatient Treatment Too Risky, Need Close Monitoring Due to Risk of Patient Decompensation, Need For IV Fluids, Need for IV Antibiotics, Risk of Complication if Not Cared For in Hospital, Risk of Diagnosis Which Will Require Inpatient Eval/Care/Monitoring Post Hospital Care: D/C or Transfer Summary - Plan Summary Plan Summary: Continue current medication management and wound dressing. Emphasized need for continue improvement in oral intake.
[2020-04-25] MEDS: CEFTRIAXONE 1 GM/D5W RTU 1 GM/50 ML RTUPB IV SCH (17:07)
[2020-04-26] MEDS: NORMAL SALINE 1000 ML 1,000 ML IV PRN ×2 (05:42→11:09)
[2020-04-26] MEDS: HEPARIN SOD (PORCINE) 5,000 UNIT/ML 1 ML VIAL SUBCUT SCH ×3 (05:43→22:59)
[2020-04-26] MEDS: PANTOPRAZOLE SODIUM 40 MG TABLET.DR PO SCH (05:43)
[2020-04-26] MEDS: METOPROLOL SUCCINATE 25 MG TAB.SR.24H PO SCH (11:08)
[2020-04-26] MEDS: MIRTAZAPINE 15 MG TABLET PO SCH (11:09)
[2020-04-26] MEDS: RALOXIFENE HCL 60 MG TABLET PO SCH (11:09)
[2020-04-26] MEDS: MICONAZOLE NITRATE 2% AEROSOL POWDER 130 GM TP SCH ×2 (11:10→22:59)
--- NOTE | 2020-04-26 15:11 | PDOC PROGRESS REPORT ---
Subjective Progress Note for:: 04/26/20 Subjective:: Patient deneidn ay chest pain or difficulty with breathing. No nausea, vomiting, or abdominal pain. No fever or chills. Reason For Visit: JANE,UTI,SACAL AND LEFT HIP DECUBITUS ULCER WITH Physical Exam Vital Signs: Temp Pulse Resp BP Pulse Ox 97.9 F 91 14 118/57 L 96 04/26/20 12:00 04/26/20 12:00 04/26/20 12:00 04/26/20 12:00 04/26/20 12:00 Intake & Output 04/25/20 04/26/20 04/27/20 06:59 06:59 06:59 Intake Total 3220 2656 785 Balance 3220 2656 785 Weight 49.3 kg 51.1 kg Physical Exam: General appearance: PRESENT: no acute distress Head exam: PRESENT: atraumatic, normocephalic Eye exam: PRESENT: conjunctiva pink. ABSENT: pallor, scleral icterus Mouth exam: PRESENT: moist Respiratory exam: PRESENT: clear to auscultation lay Cardiovascular exam: PRESENT: RRR, +S1, +S2. ABSENT: diastolic murmur, rubs, systolic murmur GI/Abdominal exam: PRESENT: normal bowel sounds, soft. ABSENT: distended, guarding, mass, organomegaly, rebound, tenderness Extremities exam: ABSENT: pedal edema Musculoskeletal exam: PRESENT: deformity - contracture deformity from advance progressive multiple sclerosis Neurological exam: PRESENT: alert, awake, oriented to person, oriented to place, oriented to time, oriented to situation, CN II-XII grossly intact. ABSENT: motor sensory deficit Psychiatric exam: PRESENT: appropriate affect, normal mood. ABSENT: homicidal ideation, suicidal ideation Skin exam: PRESENT: dry, rash - extensive athlete foot fungal infection to left foot, warm, other - dressing over pressure ulcers debridement is satisfactory. Results Laboratory Results: 04/24/20 04:30 04/24/20 04:30 04/23/20 15:52 Catheterized Urine Urine Culture - Final Aerococcus Urinae Assessment & Plan - Diagnosis (1) Decubitus skin ulcer Qualifiers: Pressure injury location: hip Pressure injury stage: unspecified pressure injury stage Laterality: left Qualified Code(s): L89.229 - Pressure ulcer of left hip, unspecified stage Is this a current diagnosis for this admission?: Yes (2) Acute kidney injury Is this a current diagnosis for this admission?: Yes (3) UTI (urinary tract infection) Qualifiers: Urinary tract infection type: site unspecified Hematuria presence: with hematuria Qualified Code(s): N39.0 - Urinary tract infection, site not specified; R31.9 - Hematuria, unspecified Is this a current diagnosis for this admission?: Yes (4) Multiple sclerosis, primary chronic progressive Is this a current diagnosis for this admission?: Yes (5) Hyperlipidemia Qualifiers: Hyperlipidemia type: unspecified Qualified Code(s): E78.5 - Hyperlipidemia, unspecified Is this a current diagnosis for this admission?: Yes (6) Depression Qualifiers: Depression Type: major depressive disorder Is this a current diagnosis for this admission?: Yes (7) Athlete's foot on left Is this a current diagnosis for this admission?: Yes - Time Time Spent with patient: 25-34 minutes Level of Care: MEDICAL Medications reviewed and adjusted accordingly: Yes Anticipated discharge: Home with Homehealth Within: Other - Inpatient Certification Based on my medical assessment, after consideration of the patient's comorbidities, presenting symptoms, or acuity I expect that the services needed warrant INPATIENT care.: Yes I certify that my determination is in accordance with my understanding of Medicare's requirements for reasonable and necessary INPATIENT services [42 CFR 412.3e].: Yes Medical Necessity: Significant Comorbidiites Make Outpatient Treatment Too Risky, Need Close Monitoring Due to Risk of Patient Decompensation, Need For IV Fluids, Need For Continuous Telemetry Monitoring, Need for IV Antibiotics, Risk of Complication if Not Cared For in Hospital, Risk of Diagnosis Which Will Require Inpatient Eval/Care/Monitoring Post Hospital Care: D/C [place] Documentation - Plan Summary Plan Summary: D/C IV Ceftriaxone. Start on Augmentin 500/125 mg p.o tid. Continue other current medication management. Discussed disposition with on duty conservation planner.
[2020-04-26] MEDS: AMOXICILLIN TR/POT CLAVULANATE 500-125 MG TAB PO SCH (22:59)
[2020-04-27] MEDS: AMOXICILLIN TR/POT CLAVULANATE 500-125 MG TAB PO SCH ×3 (05:45→22:27)
[2020-04-27] MEDS: PANTOPRAZOLE SODIUM 40 MG TABLET.DR PO SCH (05:45)
[2020-04-27] MEDS: HEPARIN SOD (PORCINE) 5,000 UNIT/ML 1 ML VIAL SUBCUT SCH ×3 (05:46→22:27)
[2020-04-27] MEDS: METOPROLOL SUCCINATE 25 MG TAB.SR.24H PO SCH (12:52)
[2020-04-27] MEDS: MIRTAZAPINE 15 MG TABLET PO SCH (12:53)
[2020-04-27] MEDS: RALOXIFENE HCL 60 MG TABLET PO SCH (12:53)
[2020-04-27] MEDS: MICONAZOLE NITRATE 2% AEROSOL POWDER 130 GM TP SCH ×2 (12:54→22:27)
--- NOTE | 2020-04-27 13:59 | PDOC PROGRESS REPORT ---
Subjective Progress Note for:: 04/27/20 Subjective:: No chest pain or difficulty with breathing. No nausea, vomiting, or abdominal pain. No fever or chills. Reason For Visit: JANE,UTI,SACAL AND LEFT HIP DECUBITUS ULCER WITH Physical Exam Vital Signs: Temp Pulse Resp BP Pulse Ox 98.1 F 103 H 20 121/55 L 100 04/27/20 11:20 04/27/20 11:20 04/27/20 11:20 04/27/20 11:20 04/27/20 11:20 Intake & Output 04/26/20 04/27/20 04/28/20 06:59 06:59 06:59 Intake Total 2656 1885 0 Output Total 0 Balance 2656 1885 0 Weight 51.1 kg 52.3 kg Physical Exam: General appearance: PRESENT: no acute distress Head exam: PRESENT: atraumatic, normocephalic Eye exam: PRESENT: conjunctiva pink. ABSENT: pallor, scleral icterus Mouth exam: PRESENT: moist Respiratory exam: PRESENT: clear to auscultation lay Cardiovascular exam: PRESENT: RRR, +S1, +S2. ABSENT: diastolic murmur, rubs, systolic murmur GI/Abdominal exam: PRESENT: normal bowel sounds, soft. ABSENT: distended, gua rding, mass, organomegaly, rebound, tenderness Extremities exam: ABSENT: pedal edema Musculoskeletal exam: PRESENT: deformity - contracture deformity from advance progressive multiple sclerosis Neurological exam: PRESENT: alert, awake, oriented to person, oriented to place, oriented to time, oriented to situation, CN II-XII grossly intact. ABSENT: motor sensory deficit Psychiatric exam: PRESENT: appropriate affect, normal mood. ABSENT: homicidal ideation, suicidal ideation Skin exam: PRESENT: dry, rash - extensive athlete foot fungal infection to left foot, warm, other - dressing over debrided pressure ulcers is satisfactory. Results Laboratory Results: 04/24/20 04:30 04/24/20 04:30 04/23/20 15:52 Catheterized Urine Urine Culture - Final Aerococcus Urinae Assessment & Plan - Diagnosis (1) Decubitus skin ulcer Qualifiers: Pressure injury location: hip Pressure injury stage: unspecified pressure injury stage Laterality: left Qualified Code(s): L89.229 - Pressure ulcer of left hip, unspecified stage Is this a current diagnosis for this admission?: Yes (2) Acute kidney injury Is this a current diagnosis for this admission?: Yes (3) UTI (urinary tract infection) Qualifiers: Urinary tract infection type: site unspecified Hematuria presence: with hematuria Qualified Code(s): N39.0 - Urinary tract infection, site not specified; R31.9 - Hematuria, unspecified Is this a current diagnosis for this admission?: Yes (4) Multiple sclerosis, primary chronic progressive Is this a current diagnosis for this admission?: Yes (5) Hyperlipidemia Qualifiers: Hyperlipidemia type: unspecified Qualified Code(s): E78.5 - Hyperlipidemia, unspecified Is this a current diagnosis for this admission?: Yes (6) Depression Qualifiers: Depression Type: major depressive disorder Is this a current diagnosis for this admission?: Yes (7) Athlete's foot on left Is this a current diagnosis for this admission?: Yes - Time Time Spent with patient: 25-34 minutes Level of Care: MEDICAL Medications reviewed and adjusted accordingly: Yes Anticipated discharge: Home with Homehealth Within: Other - Inpatient Certification Based on my medical assessment, after consideration of the patient's comorbidities, presenting symptoms, or acuity I expect that the services needed warrant INPATIENT care.: Yes I certify that my determination is in accordance with my understanding of Medicare's requirements for reasonable and necessary INPATIENT services [42 CFR 412.3e].: Yes Medical Necessity: Significant Comorbidiites Make Outpatient Treatment Too Risky, Need Close Monitoring Due to Risk of Patient Decompensation, Need For IV Fluids, Need for IV Antibiotics, Risk of Complication if Not Cared For in Hospital, Risk of Diagnosis Which Will Require Inpatient Eval/Care/Monitoring Post Hospital Care: D/C Profile Saw Operator Documentation - Plan Summary Plan Summary: Continue current medication management. Obtain CBC with diff and CMP. Possible d/c home tomorrow with [facility] services.
[2020-04-27 15:10] LABS: HEMATOCRIT 26.7 % (36.0-47.0); HEMOGLOBIN 8.7 g/dL (12.0-15.5); MEAN CORPUSCULAR HEMOGLOBIN 28.3 pg (27.0-33.4); MEAN CORPUSCULAR HGB CONC 32.6 g/dL (32.0-36.0); MEAN CORPUSCULAR VOLUME 87 fl (80-97); PLATELET COUNT 300 10^3/uL (150-450); RED BLOOD COUNT 3.08 10^6/uL (3.72-5.28); RED CELL DISTRIBUTION WIDTH 15.2 % (11.5-14.0); WHITE BLOOD COUNT 6.1 10^3/uL (4.0-10.5)
[2020-04-27 15:29] LABS: BLOOD UREA NITROGEN 12 mg/dL (7-20); CALCIUM 8.1 mg/dL (8.4-10.2); CARBON DIOXIDE 26 mmol/L (22-30); GLUCOSE 86 mg/dL (75-110); POTASSIUM 3.6 mmol/L (3.6-5.0)
[2020-04-27 15:34] LABS: ANION GAP 5 (5-19); CHLORIDE 109 mmol/L (98-107)
[2020-04-27 15:56] LABS: ABSOLUTE LYMPHOCYTES# (MANUAL) 0.3 10^3/uL (0.5-4.7); ABSOLUTE MONOCYTES # (MANUAL) 0.4 10^3/uL (0.1-1.4); BASOPHILS % (MANUAL) 0 % (0-2); EOSINOPHILS % (MANUAL) 3 % (0-6); LYMPHOCYTES % (MANUAL) 5 % (13-45); MONOCYTES % (MANUAL) 7 % (3-13); SEGMENTED NEUTROPHILS % (MAN) 85 % (42-78); TOTAL CELLS COUNTED 100
[2020-04-27 15:58] LABS: ANISOCYTOSIS SLIGHT; OVALOCYTES SLIGHT; PLATELET COMMENT ADEQUATE; POIKILOCYTOSIS SLIGHT
--- NOTE | 2020-04-28 04:03 | Operative Report ---
Nonrecallable Operative Report DATE OF SURGERY: 04/28/20 PREOPERATIVE DIAGNOSIS: Left lateral hip decubitus ulcer POSTOPERATIVE DIAGNOSIS: Left lateral hip decubitus ulcer OPERATION: Bedside debridement left lateral hip decubitus ulcer SURGEON: FELIPE QUIÑONES ANESTHESIA: Other TISSUE REMOVED OR ALTERED: Necrotic tissue left lateral hip decubitus ulcer COMPLICATIONS: None ESTIMATED BLOOD LOSS: 25 cc INTRAOPERATIVE FINDINGS: Ulcer is stage IV extends down to the periosteum of the greater trochanter PROCEDURE: ; Patient was seen at bedside she had a previous superficial debridement by Dr. Cesar approximately 3 days ago. The left lateral hip ulcer had a necrotic base with necrotic tissue foul odor. After appropriate timeout and site verification the procedure commenced. The wound was prepped with Betadine solution. Then using Metzenbaum scissors and sharp 11 blade the edges of the ulcer and and the center of it that which was necrotic subcutaneous tissue was debrided sharply back to bleeding edges the muscle appeared to be pedersen in color and this debridement by excising all the muscle with the scalpel or scissors. This continued down to deep tissue all the way to the periosteum of the greater trochanter where we finally sought pink muscle. The wound was then packed with a saline soaked Kerlix gauze. The patient tolerated procedure well with only minimal amount of pain. We will continue 3 times daily dressing changes for now in hopes of placing a wound VAC a later date.
[2020-04-28] MEDS: HEPARIN SOD (PORCINE) 5,000 UNIT/ML 1 ML VIAL SUBCUT SCH ×3 (07:37→22:23)
[2020-04-28] MEDS: AMOXICILLIN TR/POT CLAVULANATE 500-125 MG TAB PO SCH ×3 (07:37→22:23)
[2020-04-28] MEDS: PANTOPRAZOLE SODIUM 40 MG TABLET.DR PO SCH (07:37)
--- NOTE | 2020-04-28 08:39 | PDOC PROGRESS REPORT ---
Subjective Progress Note for:: 04/28/20 Subjective:: Surgical team input and wound evaluation noted. No reported fever or chills. No chest pain or difficulty with breathing. No nausea, vomiting, or abdominal pain. Oral intake remain a challenge. Reason For Visit: JANE,UTI,SACAL AND LEFT HIP DECUBITUS ULCER WITH Physical Exam Vital Signs: Temp Pulse Resp BP Pulse Ox 97.6 F 90 17 126/66 H 98 04/28/20 03:41 04/28/20 03:41 04/28/20 03:41 04/28/20 03:41 04/28/20 03:41 Intake & Output 04/27/20 04/28/20 04/29/20 06:59 06:59 06:59 Intake Total 1885 240 Output Total 0 Balance 1885 240 Weight 52.3 kg 52.3 kg Physical Exam: General appearance: PRESENT: no acute distress Head exam: PRESENT: atraumatic, normocephalic Eye exam: PRESENT: conjunctiva pink. ABSENT: pallor, scleral icterus Mouth exam: PRESENT: moist Respiratory exam: PRESENT: clear to auscultation lay Cardiovascular exam: PRESENT: RRR, +S1, +S2. ABSENT: diastolic murmur, rubs, systolic murmur GI/Abdominal exam: PRESENT: normal bowel sounds, soft. ABSENT: distended, guarding, mass, organomegaly, rebound, tenderness Extremities exam: ABSENT: pedal edema Musculoskeletal exam: PRESENT: deformity - contracture deformity from advance progressive multiple sclerosis Neurological exam: PRESENT: alert, awake, oriented to person, oriented to place, oriented to time, oriented to situation, CN II-XII grossly intact. ABSENT: motor sensory deficit Psychiatric exam: PRESENT: appropriate affect, normal mood. ABSENT: homicidal ideation, suicidal ideation Skin exam: PRESENT: dry, rash - extensive athlete foot fungal infection to left foot, warm, other - dressing over debrided pressure ulcers is satisfactory. Results Laboratory Results: 04/27/20 14:42 04/27/20 14:42 04/27/20 04/27/20 14:42 14:42 WBC 6.1 RBC 3.08 L Hgb 8.7 L Hct 26.7 L MCV 87 MCH 28.3 MCHC 32.6 RDW 15.2 H Plt Count 300 Seg Neutrophils % Not Reportable Sodium 139.8 Potassium 3.6 Chloride 109 H Carbon Dioxide 26 Anion Gap 5 BUN 12 Creatinine 0.85 Est GFR ( Amer) > 60 Glucose 86 Calcium 8.1 L Assessment & Plan - Diagnosis (1) Decubitus skin ulcer Qualifiers: Pressure injury location: hip Pressure injury stage: stage 4 Laterality: left Qualified Code(s): L89.224 - Pressure ulcer of left hip, stage 4 Is this a current diagnosis for this admission?: Yes (2) Acute kidney injury Is this a current diagnosis for this admission?: Yes (3) UTI (urinary tract infection) Qualifiers: Urinary tract infection type: site unspecified Hematuria presence: with hematuria Qualified Code(s): N39.0 - Urinary tract infection, site not specified; R31.9 - Hematuria, unspecified Is this a current diagnosis for this admission?: Yes (4) Multiple sclerosis, primary chronic progressive Is this a current diagnosis for this admission?: Yes (5) Hyperlipidemia Qualifiers: Hyperlipidemia type: unspecified Qualified Code(s): E78.5 - Hyperlipidemia, unspecified Is this a current diagnosis for this admission?: Yes (6) Depression Qualifiers: Depression Type: major depressive disorder Is this a current diagnosis for this admission?: Yes (7) Athlete's foot on left Is this a current diagnosis for this admission?: Yes - Time Time Spent with patient: 25-34 minutes Level of Care: MEDICAL Medications reviewed and adjusted accordingly: Yes Anticipated discharge: Home with Homehealth Within: Other - Inpatient Certification Based on my medical assessment, after consideration of the patient's comorbidities, presenting symptoms, or acuity I expect that the services needed warrant INPATIENT care.: Yes I certify that my determination is in accordance with my understanding of Medicare's requirements for reasonable and necessary INPATIENT services [42 CFR 412.3e].: Yes Medical Necessity: Significant Comorbidiites Make Outpatient Treatment Too Risky, Need Close Monitoring Due to Risk of Patient Decompensation, Need For Continuous Telemetry Monitoring, Risk of Complication if Not Cared For in Hospital, Risk of Diagnosis Which Will Require Inpatient Eval/Care/Monitoring Post Hospital Care: D/C Clerical Administrative Assistant Documentation - Plan Summary Plan Summary: Continue current management. Followup with surgical team regarding wound vac placement.
[2020-04-28] MEDS: MIRTAZAPINE 15 MG TABLET PO SCH (10:07)
[2020-04-28] MEDS: METOPROLOL SUCCINATE 25 MG TAB.SR.24H PO SCH (10:07)
[2020-04-28] MEDS: RALOXIFENE HCL 60 MG TABLET PO SCH (10:08)
[2020-04-28] MEDS: MICONAZOLE NITRATE 2% AEROSOL POWDER 130 GM TP SCH ×2 (10:09→22:27)
[2020-04-28] MEDS: NORMAL SALINE 1000 ML 1,000 ML IV PRN (14:03)
[2020-04-28] MEDS ORDERED: GLUCAGON,HUMAN RECOMB 1 MG INJ SUBCUT PRN (18:44)
[2020-04-28] MEDS ORDERED: DEXTROSE 40% GEL 15 GM TUBE PO PRN ×2 (18:44)
[2020-04-28] MEDS ORDERED: DEXTROSE 50%-WATER 25 GM/50 ML DISP.SYRIN IV PRN ×2 (18:44)
--- NOTE | 2020-04-28 20:10 | PDOC PROGRESS REPORT ---
Subjective Progress Note for:: 04/28/20 Reason For Visit: JANE,UTI,SACAL AND LEFT HIP DECUBITUS ULCER WITH Physical Exam Vital Signs: Temp Pulse Resp BP Pulse Ox 98.2 F 93 16 93/46 L 99 04/28/20 15:50 04/28/20 15:50 04/28/20 15:50 04/28/20 15:50 04/28/20 15:50 Intake & Output 04/27/20 04/28/20 04/29/20 06:59 06:59 06:59 Intake Total 1885 240 720 Output Total 0 Balance 1885 240 720 Weight 52.3 kg 52.3 kg Results Laboratory Results: 04/27/20 14:42 04/27/20 14:42 04/23/20 16:49 Blood Blood Culture - Final NO GROWTH IN 5 DAYS 04/23/20 15:05 Blood Blood Culture - Final NO GROWTH IN 5 DAYS Assessment & Plan - Diagnosis (1) Decubitus skin ulcer Qualifiers: Pressure injury location: hip Pressure injury stage: stage 4 Laterality: left Qualified Code(s): L89.224 - Pressure ulcer of left hip, stage 4 - Plan Summary Plan Summary: 70-year-old female status post surgical debridement of a hip decubitus. The nursing staff recently changed the dressing. Per their report, the wound is clean. I will plan to inspect the wound tomorrow. If there is any nonviable tissue, she may require operative intervention. N.p.o. after midnight, in case further debridement is needed. Surgery will continue to follow with you.
[2020-04-29] MEDS: PANTOPRAZOLE SODIUM 40 MG TABLET.DR PO SCH (06:15)
[2020-04-29] MEDS: AMOXICILLIN TR/POT CLAVULANATE 500-125 MG TAB PO SCH ×3 (06:15→22:02)
[2020-04-29] MEDS: HEPARIN SOD (PORCINE) 5,000 UNIT/ML 1 ML VIAL SUBCUT SCH ×3 (06:15→22:02)
--- NOTE | 2020-04-29 09:28 | PDOC PROGRESS REPORT ---
Subjective Progress Note for:: 04/29/20 Reason For Visit: JANE,UTI,SACAL AND LEFT HIP DECUBITUS ULCER WITH Physical Exam Vital Signs: Temp Pulse Resp BP Pulse Ox 97.8 F 92 17 130/72 H 98 04/29/20 00:00 04/29/20 00:00 04/29/20 00:00 04/29/20 00:00 04/29/20 00:00 Intake & Output 04/28/20 04/29/20 04/30/20 06:59 06:59 06:59 Intake Total 240 720 Output Total 0 Balance 240 720 Weight 52.3 kg 52.3 kg Results Laboratory Results: 04/27/20 14:42 04/27/20 14:42 04/23/20 16:49 Blood Blood Culture - Final NO GROWTH IN 5 DAYS 04/23/20 15:05 Blood Blood Culture - Final NO GROWTH IN 5 DAYS Assessment & Plan - Diagnosis (1) Decubitus skin ulcer Qualifiers: Pressure injury location: hip Pressure injury stage: stage 4 Laterality: left Qualified Code(s): L89.224 - Pressure ulcer of left hip, stage 4 Is this a current diagnosis for this admission?: Yes - Plan Summary Plan Summary: 70-year-old female status post surgical debridement of a hip decubitus. I have personally examined the wound today. The wound is clean. There is no evidence of ongoing necrosis or infection. Recommend wound VAC placement. I will make the appropriate consultation to social work to have this arranged. Surgery will continue to follow with you.
[2020-04-29] MEDS: METOPROLOL SUCCINATE 25 MG TAB.SR.24H PO SCH (10:43)
[2020-04-29] MEDS: MICONAZOLE NITRATE 2% AEROSOL POWDER 130 GM TP SCH ×2 (10:43→22:17)
[2020-04-29] MEDS: RALOXIFENE HCL 60 MG TABLET PO SCH (10:43)
[2020-04-29] MEDS: MIRTAZAPINE 15 MG TABLET PO SCH (10:43)
[2020-04-29] MEDS: NORMAL SALINE 1000 ML 1,000 ML IV PRN ×2 (10:55→22:03)
--- NOTE | 2020-04-29 17:59 | PDOC PROGRESS REPORT ---
Subjective Progress Note for:: 04/29/20 Subjective:: No fever or chills. No chest pain or difficulty with breathing. No nausea, vomiting, or abdominal pain. Reason For Visit: JANE,UTI,SACAL AND LEFT HIP DECUBITUS ULCER WITH Physical Exam Vital Signs: Temp Pulse Resp BP Pulse Ox 98.0 F 97 16 113/54 L 99 04/29/20 08:38 04/29/20 08:38 04/29/20 08:38 04/29/20 08:38 04/29/20 08:38 Intake & Output 04/28/20 04/29/20 04/30/20 06:59 06:59 06:59 Intake Total 240 1720 Output Total 0 Balance 240 1720 Weight 52.3 kg 52.3 kg Physical Exam: General appearance: PRESENT: no acute distress Head exam: PRESENT: atraumatic, normocephalic Eye exam: PRESENT: conjunctiva pink. ABSENT: pallor, scleral icterus Mouth exam: PRESENT: moist Respiratory exam: PRESENT: clear to auscultation lay Cardiovascular exam: PRESENT: RRR, +S1, +S2. ABSENT: diastolic murmur, rubs, s ystolic murmur GI/Abdominal exam: PRESENT: normal bowel sounds, soft. ABSENT: distended, guarding, mass, organomegaly, rebound, tenderness Extremities exam: ABSENT: pedal edema Musculoskeletal exam: PRESENT: deformity - contracture deformity from advance progressive multiple sclerosis Neurological exam: PRESENT: alert, awake, oriented to person, oriented to place, oriented to time, oriented to situation, CN II-XII grossly intact. ABSENT: motor sensory deficit Psychiatric exam: PRESENT: appropriate affect, normal mood. ABSENT: homicidal ideation, suicidal ideation Skin exam: PRESENT: dry, rash - extensive athlete foot left foot, warm, other - dressing over debrided left hip and thigh pressure ulcers is satisfactory. Results Laboratory Results: 04/27/20 14:42 04/27/20 14:42 04/23/20 16:49 Blood Blood Culture - Final NO GROWTH IN 5 DAYS 04/23/20 15:05 Blood Blood Culture - Final NO GROWTH IN 5 DAYS Assessment & Plan - Diagnosis (1) Decubitus skin ulcer Qualifiers: Pressure injury location: hip Pressure injury stage: stage 4 Laterality: left Qualified Code(s): L89.224 - Pressure ulcer of left hip, stage 4 Is this a current diagnosis for this admission?: Yes (2) Acute kidney injury Is this a current diagnosis for this admission?: Yes (3) UTI (urinary tract infection) Qualifiers: Urinary tract infection type: site unspecified Hematuria presence: with hematuria Qualified Code(s): N39.0 - Urinary tract infection, site not specified; R31.9 - Hematuria, unspecified Is this a current diagnosis for this admission?: Yes (4) Multiple sclerosis, primary chronic progressive Is this a current diagnosis for this admission?: Yes (5) Hyperlipidemia Qualifiers: Hyperlipidemia type: unspecified Qualified Code(s): E78.5 - Hyperlipidemia, unspecified Is this a current diagnosis for this admission?: Yes (6) Depression Qualifiers: Depression Type: major depressive disorder Is this a current diagnosis for this admission?: Yes (7) Athlete's foot on left Is this a current diagnosis for this admission?: Yes - Time Time Spent with patient: 25-34 minutes Level of Care: MEDICAL Medications reviewed and adjusted accordingly: Yes Anticipated discharge: Home with Homehealth Within: Other - Inpatient Certification Based on my medical assessment, after consideration of the patient's comorbidities, presenting symptoms, or acuity I expect that the services needed warrant INPATIENT care.: Yes I certify that my determination is in accordance with my understanding of Medicare's requirements for reasonable and necessary INPATIENT services [42 CFR 412.3e].: Yes Medical Necessity: Significant Comorbidiites Make Outpatient Treatment Too Risky, Need Close Monitoring Due to Risk of Patient Decompensation, Need for Surgery, Risk of Complication if Not Cared For in Hospital, Risk of Diagnosis Which Will Require Inpatient Eval/Care/Monitoring - Plan Summary Plan Summary: Continue current medication management. Wound vac ordered for wound management.
[2020-04-30] MEDS: HEPARIN SOD (PORCINE) 5,000 UNIT/ML 1 ML VIAL SUBCUT SCH ×3 (05:11→21:20)
[2020-04-30] MEDS: AMOXICILLIN TR/POT CLAVULANATE 500-125 MG TAB PO SCH ×3 (05:11→21:20)
[2020-04-30] MEDS: PANTOPRAZOLE SODIUM 40 MG TABLET.DR PO SCH (05:11)
[2020-04-30] MEDS: MIRTAZAPINE 15 MG TABLET PO SCH (09:11)
[2020-04-30] MEDS: METOPROLOL SUCCINATE 25 MG TAB.SR.24H PO SCH (09:11)
[2020-04-30] MEDS: RALOXIFENE HCL 60 MG TABLET PO SCH (09:11)
--- NOTE | 2020-04-30 09:30 | PDOC PROGRESS REPORT ---
Subjective Progress Note for:: 04/30/20 Reason For Visit: JANE,UTI,SACAL AND LEFT HIP DECUBITUS ULCER WITH Patient with VAC in place, tolerating well, no problems overnight. Physical Exam Vital Signs: Temp Pulse Resp BP Pulse Ox 98.2 F 89 18 111/48 L 97 04/30/20 07:33 04/30/20 07:33 04/30/20 07:33 04/30/20 07:33 04/30/20 07:33 Intake & Output 04/29/20 04/30/20 05/01/20 06:59 06:59 06:59 Intake Total 1720 1000 Balance 1720 1000 Weight 52.3 kg 52.3 kg General appearance: PRESENT: other - Semi-recumbent, semi-contracted position. Torso Front/Back Image: 1 - Wound VAC in position, black sponge, excellent seal, no surrounding erythema Musculoskeletal exam: PRESENT: other - Some areas of skin breakdown. Results Laboratory Results: 04/27/20 14:42 04/27/20 14:42 Assessment & Plan - Diagnosis (1) Stage IV pressure ulcer of left hip Is this a current diagnosis for this admission?: Yes Plan: Impression: Patient is 2 days status post vigorous debridement left hip stage IV decubitus, with source control, now treated with wound VAC therapy. Recommendations: 1. Continue VAC therapy on outpatient basis; obtain home health support 2. Patient can [facility] with [facility] for patient management. 3. Surgery will be available if needed; please reconsult prn (2) Multiple sclerosis, primary chronic progressive Is this a current diagnosis for this admission?: Yes - Time Time Spent: 30 to 50 Minutes
[2020-04-30] MEDS: MICONAZOLE NITRATE 2% AEROSOL POWDER 130 GM TP SCH ×2 (10:35→23:54)
[2020-04-30] MEDS: NORMAL SALINE 1000 ML 1,000 ML IV PRN ×2 (10:36→21:28)
[2020-04-30 11:39] LABS: HEMATOCRIT 30.7 % (36.0-47.0); HEMOGLOBIN 9.7 g/dL (12.0-15.5); MEAN CORPUSCULAR HEMOGLOBIN 27.6 pg (27.0-33.4); MEAN CORPUSCULAR HGB CONC 31.5 g/dL (32.0-36.0); MEAN CORPUSCULAR VOLUME 88 fl (80-97); PLATELET COUNT 406 10^3/uL (150-450); RED CELL DISTRIBUTION WIDTH 15.5 % (11.5-14.0); WHITE BLOOD COUNT 7.4 10^3/uL (4.0-10.5)
[2020-04-30 11:56] LABS: ABSOLUTE LYMPHOCYTES# (MANUAL) 0.5 10^3/uL (0.5-4.7); ABSOLUTE MONOCYTES # (MANUAL) 0.7 10^3/uL (0.1-1.4); BASOPHILS % (MANUAL) 0 % (0-2); EOSINOPHILS % (MANUAL) 3 % (0-6); LYMPHOCYTES % (MANUAL) 7 % (13-45); MONOCYTES % (MANUAL) 9 % (3-13); SEGMENTED NEUTROPHILS % (MAN) 81 % (42-78); TOTAL CELLS COUNTED 100
[2020-04-30 11:57] LABS: HYPOCHROMASIA SLIGHT; OVALOCYTES SLIGHT
[2020-04-30 11:58] LABS: ANISOCYTOSIS SLIGHT; PLATELET COMMENT ADEQUATE; POIKILOCYTOSIS SLIGHT
--- NOTE | 2020-04-30 12:51 | PDOC PROGRESS REPORT ---
Subjective Progress Note for:: 04/30/20 Subjective:: No chest pain or difficulty with breathing. No nausea, vomiting, or abdominal pain. No fever or chills. Reason For Visit: JANE,UTI,SACAL AND LEFT HIP DECUBITUS ULCER WITH Physical Exam Vital Signs: Temp Pulse Resp BP Pulse Ox 98.2 F 89 18 111/48 L 97 04/30/20 07:33 04/30/20 07:33 04/30/20 07:33 04/30/20 07:33 04/30/20 07:33 Intake & Output 04/29/20 04/30/20 05/01/20 06:59 06:59 06:59 Intake Total 1720 1000 Balance 1720 1000 Weight 52.3 kg 52.3 kg Physical Exam: General appearance: PRESENT: no acute distress Head exam: PRESENT: atraumatic, normocephalic Eye exam: PRESENT: conjunctiva pink. ABSENT: pallor, scleral icterus Mouth exam: PRESENT: moist Respiratory exam: PRESENT: clear to auscultation lay Cardiovascular exam: PRESENT: RRR, +S1, +S2. ABSENT: diastolic murmur, rubs, systolic murmur GI/Abdominal exam: PRESENT: normal bowel sounds, soft. ABSENT: distended, guarding, mass, organomegaly, rebound, tenderness Extremities exam: ABSENT: pedal edema Musculoskeletal exam: PRESENT: deformity - contracture deformity from advance progressive multiple sclerosis Neurological exam: PRESENT: alert, awake, oriented to person, oriented to place, oriented to time, oriented to situation, CN II-XII grossly intact. ABSENT: motor sensory deficit Psychiatric exam: PRESENT: appropriate affect, normal mood. ABSENT: homicidal ideation, suicidal ideation Skin exam: PRESENT: dry, rash - extensive athlete foot left foot, warm, other - dressing over debrided left hip and thigh pressure ulcers with wound vac in situ. Results Laboratory Results: 04/27/20 14:42 04/27/20 14:42 Assessment & Plan - Diagnosis (1) Decubitus skin ulcer Qualifiers: Pressure injury location: hip Pressure injury stage: stage 4 Laterality: left Qualified Code(s): L89.224 - Pressure ulcer of left hip, stage 4 Is this a current diagnosis for this admission?: Yes (2) Acute kidney injury Is this a current diagnosis for this admission?: Yes (3) UTI (urinary tract infection) Qualifiers: Urinary tract infection type: site unspecified Hematuria presence: with hematuria Qualified Code(s): N39.0 - Urinary tract infection, site not specified; R31.9 - Hematuria, unspecified Is this a current diagnosis for this admission?: Yes (4) Multiple sclerosis, primary chronic progressive Is this a current diagnosis for this admission?: Yes (5) Hyperlipidemia Qualifiers: Hyperlipidemia type: unspecified Qualified Code(s): E78.5 - Hyperlipidemia, unspecified Is this a current diagnosis for this admission?: Yes (6) Depression Qualifiers: Depression Type: major depressive disorder Is this a current diagnosis for this admission?: Yes (7) Athlete's foot on left Is this a current diagnosis for this admission?: Yes - Time Time Spent with patient: 25-34 minutes Level of Care: MEDICAL Medications reviewed and adjusted accordingly: Yes Anticipated discharge: Home with Homehealth Within: Other - Inpatient Certification Based on my medical assessment, after consideration of the patient's comorbidities, presenting symptoms, or acuity I expect that the services needed warrant INPATIENT care.: Yes I certify that my determination is in accordance with my understanding of Medicare's requirements for reasonable and necessary INPATIENT services [42 CFR 412.3e].: Yes Medical Necessity: Significant Comorbidiites Make Outpatient Treatment Too Risky, Need Close Monitoring Due to Risk of Patient Decompensation, Risk of Complication if Not Cared For in Hospital, Risk of Diagnosis Which Will Require Inpatient Eval/Care/Monitoring Post Hospital Care: D/C Thermostat Maker Documentation - Plan Summary Plan Summary: Continue current medication management. Possible discharge home tomorrow. shoe lay out planner working on her semi electric bed and wound vac service as well as [employer] services.
[2020-05-01] MEDS: HEPARIN SOD (PORCINE) 5,000 UNIT/ML 1 ML VIAL SUBCUT SCH ×2 (06:15→14:09)
[2020-05-01] MEDS: AMOXICILLIN TR/POT CLAVULANATE 500-125 MG TAB PO SCH ×2 (06:16→14:09)
[2020-05-01] MEDS: PANTOPRAZOLE SODIUM 40 MG TABLET.DR PO SCH (06:16)
[2020-05-01] MEDS: NORMAL SALINE 1000 ML 1,000 ML IV PRN (09:10)
[2020-05-01] MEDS: MIRTAZAPINE 15 MG TABLET PO SCH (09:46)
[2020-05-01] MEDS: METOPROLOL SUCCINATE 25 MG TAB.SR.24H PO SCH (09:46)
[2020-05-01] MEDS: RALOXIFENE HCL 60 MG TABLET PO SCH (09:46)
[2020-05-01] MEDS: MICONAZOLE NITRATE 2% AEROSOL POWDER 130 GM TP SCH (09:48)
--- NOTE | 2020-05-01 14:42 | PDOC DISCHARGE SUMMARY ---
Impression - Admit/DC Date/PCP Admission Date/Primary Care Provider: 04/23/20 17:31 PAULINA HURLEY Discharge Date: 05/01/20 - Discharge Diagnosis (1) Decubitus skin ulcer Is this a current diagnosis for this admission?: Yes (2) Acute kidney injury Is this a current diagnosis for this admission?: Yes (3) UTI (urinary tract infection) Is this a current diagnosis for this admission?: Yes (4) Multiple sclerosis, primary chronic progressive Is this a current diagnosis for this admission?: Yes (5) Hyperlipidemia Is this a current diagnosis for this admission?: Yes (6) Depression Is this a current diagnosis for this admission?: Yes (7) Athlete's foot on left Is this a current diagnosis for this admission?: Yes - Assessment Summary: Patient was admitted with concern for UTI, JANE, and infected unstageable left hip and upper thigh pressure ulcer. Her oral intake has been very poor. She was managed with IV antibiotic Ceftriaxone and IV fluid support. She was started on oral supplementation including Beneprotein, Magic Shake. She was seen in consultation by the surgicalist team and had several bedside sharp debridement of her wound that is currently graded at stage 4. Her blood culture was no growth after 5 days of incubation and her urine culture grew aerococcus urinae. She has remain afebrile and improvement in her percent intake at the present time. She will be discharged home with home health services and follow up in the office as instructed upon discharge. - Additional Information Resuscitation Status: Full Code Discharge Diet: As Tolerated Discharge Activity: Activity As Tolerated Referrals: WOUND CARE [Outside] PAULINA HURLEY MD [Primary Care Provider] - 05/12/20 10:00 am Prescriptions: Amox Tr/Potassium Clavulanate [Augmentin "500" Tablet] 1 tab PO Q8 #14 tablet Miconazole Nitrate [Desenex 2% Aerosol Powder 130 gm] 1 applic TP Q12 #1 can Mirtazapine 30 mg PO DAILY #90 tablet Home Medications: Fingolimod HCl [Gilenya] 0.5 mg PO DAILY 04/23/20 Metoprolol Succinate [Toprol Xl 25 mg Tab.sr] 25 mg PO DAILY 04/23/20 Raloxifene HCl [Evista 60 mg Tablet] 60 mg PO DAILY 04/23/20 Vilazodone HCl [Viibryd] 40 mg PO DAILY 04/23/20 Amox Tr/Potassium Clavulanate [Augmentin "500" Tablet] 1 tab PO Q8 #14 tablet 05/01/20 Miconazole Nitrate [Desenex 2% Aerosol Powder 130 gm] 1 applic TP Q12 #1 can 05/01/20 Mirtazapine 30 mg PO DAILY #90 tablet 05/01/20 History of Present Illiness History of Present Illness: 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 She was referred to outpatient wound care clinic but her visiting nurse, not the regular staff, reviewed her wound today and due to observed discharge and perceived odor, she was referred to the ED for further evaluation and management. Patient son reported continue poor food and water intake. No reported nausea, vomiting, abdominal pain, constipation, or diarrhea. No fever, chills, difficulty with breathing, or chest pain. No headache or dizziness. Her initial ED evaluation revealed normal WBC with left shift segmented neutrophils, renal indices indicate pre-renal azotemia, hyperglycemia, and abnormal urinalysis with positive nitrite and moderate leukocyte esterase. She was advised hospitalization for further evaluation and management. Her morbidities are as listed below. Hospital Course Hospital Course: Patient was admitted with concern for UTI, JANE, and infected unstageable left hip and upper thigh pressure ulcer. Her oral intake has been very poor. She was managed with IV antibiotic Ceftriaxone and IV fluid support. She was started on oral supplementation including Beneprotein, Magic Shake. She was seen in consultation by the surgicalist team and had several bedside sharp debridement of her wound that is currently graded at stage 4. Her blood culture was no growth after 5 days of incubation and her urine culture grew aerococcus urinae. She has remain afebrile and improvement in her percent intake at the present time. She will be discharged home with home health services and follow up in the office as instructed upon discharge. Physical Exam Vital Signs: Temp Pulse Resp BP Pulse Ox 99.5 F 96 16 101/53 L 94 05/01/20 11:22 05/01/20 11:22 05/01/20 11:22 05/01/20 11:22 05/01/20 11:22 Intake & Output 04/30/20 05/01/20 05/02/20 06:59 06:59 06:59 Intake Total 1000 2460 1380 Output Total 240 Balance 1000 2220 1380 Weight 52.3 kg 50.1 kg 50.1 kg General appearance: PRESENT: no acute distress Head exam: PRESENT: atraumatic, normocephalic Eye exam: PRESENT: conjunctiva pink. ABSENT: pallor, scleral icterus Mouth exam: PRESENT: moist Respiratory exam: PRESENT: clear to auscultation lay Cardiovascular exam: PRESENT: RRR, +S1, +S2. ABSENT: diastolic murmur, rubs, systolic murmur GI/Abdominal exam: PRESENT: normal bowel sounds, soft. ABSENT: distended, guarding, mass, organomegaly, rebound, tenderness Extremities exam: ABSENT: pedal edema Musculoskeletal exam: PRESENT: deformity - contracture deformity from advance progressive multiple sclerosis Neurological exam: PRESENT: alert, awake, oriented to person, oriented to place, oriented to time, oriented to situation, CN II-XII grossly intact. ABSENT: motor sensory deficit Psychiatric exam: PRESENT: appropriate affect, normal mood. ABSENT: homicidal ideation, suicidal ideation Skin exam: PRESENT: dry, rash - extensive athlete foot left foot, warm, other - dressing over debrided left hip and thigh pressure ulcers with wound vac in situ. Results Laboratory Results: WBC 7.4 10^3/uL (4.0-10.5) 04/30/20 10:55 RBC 3.50 10^6/uL (3.72-5.28) L 04/30/20 10:55 Hgb 9.7 g/dL (12.0-15.5) L 04/30/20 10:55 Hct 30.7 % (36.0-47.0) L 04/30/20 10:55 MCV 88 fl (80-97) 04/30/20 10:55 MCH 27.6 pg (27.0-33.4) 04/30/20 10:55 MCHC 31.5 g/dL (32.0-36.0) L 04/30/20 10:55 RDW 15.5 % (11.5-14.0) H 04/30/20 10:55 Plt Count 406 10^3/uL (150-450) 04/30/20 10:55 Lymph % (Auto) Not Reportable 04/30/20 10:55 [place] % (Auto) Not Reportable 04/30/20 10:55 Eos % (Auto) Not Reportable 04/30/20 10:55 Baso % (Auto) Not Reportable 04/30/20 10:55 Absolute Neuts (auto) Not Reportable 04/30/20 10:55 Absolute Lymphs (auto) Not Reportable 04/30/20 10:55 Absolute Monos (auto) Not Reportable 04/30/20 10:55 Absolute Eos (auto) Not Reportable 04/30/20 10:55 Absolute Basos (auto) Not Reportable 04/30/20 10:55 Total Counted 100 04/30/20 10:55 Seg Neutrophils % Not Reportable 04/30/20 10:55 Seg Neuts % (Manual) 81 % (42-78) H 04/30/20 10:55 Lymphocytes % (Manual) 7 % (13-45) L 04/30/20 10:55 Monocytes % (Manual) 9 % (3-13) 04/30/20 10:55 Eosinophils % (Manual) 3 % (0-6) 04/30/20 10:55 Basophils % (Manual) 0 % (0-2) 04/30/20 10:55 Abs Neuts (Manual) 6.0 10^3/uL (1.7-8.2) 04/30/20 10:55 Abs Lymphs (Manual) 0.5 10^3/uL (0.5-4.7) 04/30/20 10:55 Abs Monocytes (Manual) 0.7 10^3/uL (0.1-1.4) 04/30/20 10:55 Absolute Eos (Manual) 0.2 10^3/uL (0.0-0.6) 04/30/20 10:55 Abs Basophils (Manual) 0.0 10^3/uL (0.0-0.2) 04/30/20 10:55 Toxic Vacuolation PRESENT 04/24/20 04:30 Platelet Comment ADEQUATE 04/30/20 10:55 Hypochromasia SLIGHT 04/30/20 10:55 Poikilocytosis SLIGHT 04/30/20 10:55 Anisocytosis SLIGHT 04/30/20 10:55 Ovalocytes SLIGHT 04/30/20 10:55 Sodium 139.8 mmol/L (137-145) 04/27/20 14:42 Potassium 3.6 mmol/L (3.6-5.0) 04/27/20 14:42 Chloride 109 mmol/L (98-107) H 04/27/20 14:42 Carbon Dioxide 26 mmol/L (22-30) 04/27/20 14:42 Anion Gap 5 (5-19) 04/27/20 14:42 BUN 12 mg/dL (7-20) 04/27/20 14:42 Creatinine 0.85 mg/dL (0.52-1.25) 04/27/20 14:42 Est GFR ( Amer) > 60 (>60) 04/27/20 14:42 Est GFR (MDRD) Non-Af > 60 (>60) 04/27/20 14:42 Glucose 86 mg/dL (75-110) 04/27/20 14:42 Lactic Acid 1.5 mmol/L (0.7-2.1) 04/23/20 15:05 Calcium 8.1 mg/dL (8.4-10.2) L 04/27/20 14:42 Total Bilirubin 0.3 mg/dL (0.2-1.3) 04/24/20 04:30 Direct Bilirubin 0.0 mg/dL (0.0-0.4) 04/24/20 04:30 Neonat Total Bilirubin Not Reportable 04/24/20 04:30 Neonat Direct Bilirubin Not Reportable 04/24/20 04:30 Neonat Indirect Bili Not Reportable 04/24/20 04:30 AST 28 U/L (14-36) 04/24/20 04:30 ALT 15 U/L (<35) 04/24/20 04:30 Alkaline Phosphatase 84 U/L (38-126) 04/24/20 04:30 Total Protein 5.5 g/dL (6.3-8.2) L 04/24/20 04:30 Albumin 3.0 g/dL (3.5-5.0) L 04/24/20 04:30 Urine Color YELLOW 04/23/20 15:52 Urine Appearance SLIGHTLY-CLOUDY 04/23/20 15:52 Urine pH 6.0 (5.0-9.0) 04/23/20 15:52 Ur Specific [place] 1.012 04/23/20 15:52 Urine Protein NEGATIVE mg/dL (NEGATIVE) 04/23/20 15:52 Urine Glucose (UA) NEGATIVE mg/dL (NEGATIVE) 04/23/20 15:52 Urine Ketones NEGATIVE mg/dL (NEGATIVE) 04/23/20 15:52 Urine Blood NEGATIVE (NEGATIVE) 04/23/20 15:52 Urine Nitrite POSITIVE (NEGATIVE) H 04/23/20 15:52 Urine Bilirubin NEGATIVE (NEGATIVE) 04/23/20 15:52 Urine Urobilinogen NEGATIVE mg/dL (<2.0) 04/23/20 15:52 Ur Leukocyte Esterase MODERATE (NEGATIVE) H 04/23/20 15:52 Urine WBC (Auto) 6 /HPF 04/23/20 15:52 Urine RBC (Auto) 0 /HPF 04/23/20 15:52 Urine Bacteria (Auto) 1+ /HPF 04/23/20 15:52 Squamous Epi Cells Auto 1 /HPF 04/23/20 15:52 Amorphous Sediment Auto TRACE /HPF 04/23/20 15:52 Urine Mucus (Auto) RARE /LPF 04/23/20 15:52 Urine Ascorbic Acid 20 (NEGATIVE) H 04/23/20 15:52 Plan Health Concerns: Wound healing with nutritional challenge. Plan of Treatment: Nutritional supplementation and home health service with wound vac and follow up with wound care center. Goals: Reduce readmission risk level and wound infection. Time Spent: Greater than 30 Minutes Stroke Is this a Stroke Patient?: No Acute Heart Failure - Is this a Heart Failure Patient?: No
[2020-05-01 16:25] VITALS: BP 110/58
== END 2020-05-01 19:13 | disposition home health service (06) | DRG 580 ==
LOC: ER 13:20 → EH 17:31 → 4N 19:29
PROVIDERS: ADMIT Internal Medicine Geriatric Medicine; ATTEND Internal Medicine Geriatric Medicine
PROC: 0KBP0ZZ Excision of Left Hip Muscle, Open Approach (ICD-10-PCS; principal; 2020-04-24)
PROC: 0KBP0ZZ Excision of Left Hip Muscle, Open Approach (ICD-10-PCS; 2020-04-28)
DX: L89.224 Pressure ulcer of left hip, stage 4 (principal); N39.0 Urinary tract infection, site not specified; N17.9 Acute kidney failure, unspecified; L89.153 Pressure ulcer of sacral region, stage 3; E78.5 Hyperlipidemia, unspecified; G35 Multiple sclerosis; B35.3 Tinea pedis; F32.9 Major depressive disorder, single episode, unspecified; Z74.01 Bed confinement status
CPT/HCPCS: 36415; 80048; 80053; 81001; 83605; 85025; 87040; 87086; 87088; 96360; 99284; J0696; J1644; J2270; J3490; J7030; J7120